=== PATIENT | male | born 1950 | race Caucasian/White ===

== ENCOUNTER 2019-07-10 15:39 | Observation (INO) | payer OTHER ==
[2019-07-10] MEDS ORDERED: FAMOTIDINE 20 MG/2 ML VIAL IV ONE (16:07)
[2019-07-10] MEDS ORDERED: DIGOXIN 0.25 MG/ML AMP ONE (16:07)
[2019-07-10] MEDS ORDERED: NA CHLORIDE 0.9% 1,000 ML ONE (16:07)
[2019-07-10] MEDS ORDERED: ASPIRIN 81 MG CHEWABLE TABLET ONE (16:07)
[2019-07-10] MEDS ORDERED: ENOXAPARIN 100 MG/ML SYR SQ ONE (16:07)
--- NOTE | 2019-07-10 16:35 | RAD REPORT ---
EXAM DESCRIPTION: RAD - Chest Single View - 07/10/2019 4:14 pm CLINICAL HISTORY: Tachycardia, history of atrial fibrillation, cough COMPARISON: None. TECHNIQUE: AP portable chest image was obtained 1606 hours . FINDINGS: Lung volumes are low. No focal lung parenchymal process. Heart and vasculature are normal. No measurable pleural effusion and no pneumothorax. No acute bony abnormality seen. No acute aortic findings suspected. IMPRESSION: No acute cardiopulmonary process.
[2019-07-10 16:39] LABS: Absolute Lymphocytes (CBC) 0.7 K/uL (0.7-4.9); Basophils % 0.9 % (0-1.3); Hematocrit 37.1 % (39.6-49.0); MPV 8.9 fL (7.6-11.3); RBC Red Blood Cell Count 4.23 M/uL (4.33-5.43)
[2019-07-10 16:42] LABS: Protime INR 1.07
--- NOTE | 2019-07-10 16:50 | ER ---
Nurse's Notes [facility] Name: Spencer Prasad Age: 68 yrs Sex: Male : 1950 Arrival Date: 07/10/2019 Time: 15:42 Bed 17 Private MD: Diagnosis: Atrial fibrillation and flutter-with rvr;Palpitations;Unspecified kidney failure-insufficency;Anemia, unspecified Presentation: 07/10 15:45 Presenting complaint: Patient states: i have had afib in the past, he had the ablation tw2 done last year, but the past few days i have been feeling bad, , i feel my heart racing. Transition of care: patient was not received from another setting of care. Onset of symptoms was July 10, 2019. Risk Assessment: Do you want to hurt yourself or someone else? Patient reports no desire to harm self or others. Initial Sepsis Screen: Does the patient meet any 2 criteria? No. Patient's initial sepsis screen is negative. Does the patient have a suspected source of infection? No. Patient's initial sepsis screen is negative. Care prior to arrival: None. 15:45 Method Of Arrival: Ambulatory tw2 15:49 Presenting complaint: Patient states: i am having like allergy problems with a cough tw2 and congestion, tyree dizzy feeling like i am going to pass out. 15:51 Acuity: LOUISE 2 tw2 Triage Assessment: 15:46 General: Appears in no apparent distress. Behavior is calm, cooperative, appropriate tw2 for age. Pain: Denies pain. Cardiovascular: Reports palpitations. Historical: - Allergies: 15:49 No Known Allergies; tw2 - Home Meds: 15:49 Metoprolol Tartrate Oral [Active]; clorcon [Active]; Lisinopril Oral [Active]; aspirin tw2 81 mg Oral chew 1 tab once daily [Active]; Eliquis 5 mg oral tab 1 tab 2 times per day (Last Dose: 06/10/2019) [Active]; - PMHx: 15:49 Atrial Fib; tw2 - PSHx: 15:49 heart ablation; tw2 - Immunization history:: Adult Immunizations. - Social history:: Smoking status: . - Ebola Screening: : Patient denies travel to an Ebola-affected area in the 21 days before illness onset. - Family history:: not pertinent. Screenin:11 Abuse screen: Denies threats or abuse. Nutritional screening: No deficits noted. tw2 Tuberculosis screening: No symptoms or risk factors identified. Fall Risk None identified. Assessment: 16:00 General: Appears comfortable, Behavior is calm, cooperative, appropriate for age. Pain: aj1 Denies pain. Neuro: Level of Consciousness is awake, alert, obeys commands, Oriented to person, place, time, situation, Reports dizziness, when he is standing or active, denies any dizziness at this time. Cardiovascular: Reports palpitations, Denies diaphoresis, lightheadedness, nausea, shortness of breath, syncope, vomiting, Heart tones S1 S2 present Patient's skin is warm and dry. Pulses are all present. are 3+ in right radial artery and left radial artery Rhythm is atrial fibrillation with rapid ventricular response Chest pain is denied. Respiratory: Airway is patent Respiratory effort is even, unlabored, Respiratory pattern is regular, symmetrical, Breath sounds are clear bilaterally. Denies shortness of breath. GI: No signs and/or symptoms were reported involving the gastrointestinal system. : No signs and/or symptoms were reported regarding the genitourinary system. EENT: No signs and/or symptoms were reported regarding the EENT system. Derm: No signs and/or symptoms reported regarding the dermatologic system. Skin is flushed. Musculoskeletal: No signs and/or symptoms reported regarding the musculoskeletal system. Circulation, motion, and sensation intact. 16:32 Reassessment: Dr. Grullon notified of vital signs. aj1 16:40 Reassessment: Dr. Grullon at bedside to evaluate patient. aj1 16:49 Reassessment: HR 115-155, variable. BP 97/70, NAD. Dr. Grullon notified. No new orders hb at this time. 16:50 Reassessment: Dr. Brown at bedside. aj1 17:00 Reassessment: Patient appears in no apparent distress at this time. No changes from aj1 previously documented assessment. Patient and/or family updated on plan of care and expected duration. Pain level reassessed. Patient is alert, oriented x 3, equal unlabored respirations, skin warm/dry/pink. 17:04 Reassessment: BP 80/67. Patient denies dizziness, chest pain, or shortness of breath at aj this time. Dr Grullon aware of vital signs. Patient was instructed to notify staff if he began to have any of the above listed symptoms. 17:10 Reassessment: Dr. Luciano at bedside. aj1 18:00 Reassessment: BP 101/67, will hold 2nd dose of IV Lopressor at this time, and will aj1 continue to monitor and give if indicated. Dr. Grullon aware. 18:00 Reassessment: Patient and/or family updated on plan of care and expected duration. Pain aj1 level reassessed. General: Appears in no apparent distress. comfortable, Behavior is calm, cooperative, appropriate for age. Pain: Denies pain. Neuro: Level of Consciousness is awake, alert, obeys commands, Oriented to person, place, time, situation, Denies dizziness. Cardiovascular: Patient's skin is warm and dry. Rhythm is atrial fibrillation Chest pain is denied. Respiratory: Airway is patent Respiratory effort is even, unlabored, Respiratory pattern is regular, symmetrical. Derm: Skin is pink, warm \T\ dry. normal. Musculoskeletal: Circulation, motion, and sensation intact. 19:00 Reassessment: SBP has maintained between 100- 120, HR is consistently in the 70's for aj1 the past hour. Will give Betapace, hold 2nd dose of IV Lopressor. Dr. Grullon aware Will continue to monitor patient and vital signs. 19:00 Reassessment: Patient appears in no apparent distress at this time. No changes from aj1 previously documented assessment. Patient and/or family updated on plan of care and expected duration. Pain level reassessed. Patient is alert, oriented x 3, equal unlabored respirations, skin warm/dry/pink. 19:32 Reassessment: Patient appears in no apparent distress at this time. Patient and/or wh family updated on plan of care and expected duration. Pain level reassessed. Patient is alert, oriented x 3, equal unlabored respirations, skin warm/dry/pink. Vital Signs: 15:46 BP 85 / 59; Pulse 99; Resp 18; Temp 98(TE); Pulse Ox 97% on R/A; Weight 97.52 kg (R); tw2 Height 6 ft. 0 in. (182.88 cm); Pain 0/10; 16:04 Pulse 122; aj1 16:26 BP 95 / 57; Pulse 157; Resp 16; Pulse Ox 97% on R/A; aj1 17:04 BP 80 / 67; Pulse 153; Resp 20; Pulse Ox 100% on R/A; aj1 17:35 BP 111 / 76; Pulse 131; Resp 18; Pulse Ox 100% on R/A; aj1 17:45 BP 112 / 85; Pulse 103; Resp 13; Pulse Ox 100% on R/A; aj1 17:55 BP 117 / 71; Pulse 78; Resp 18; Pulse Ox 97% on R/A; aj1 18:00 BP 101 / 67; Pulse 78; Resp 14; Pulse Ox 100% ; aj1 18:09 BP 100 / 68; Pulse 78; Resp 13; Pulse Ox 100% on R/A; aj1 18:30 BP 117 / 65; Pulse 75; Resp 16; Pulse Ox 97% on R/A; aj1 18:50 BP 112 / 75; Pulse 78; Resp 20; Pulse Ox 95% on R/A; aj1 19:32 BP 125 / 79; Pulse 77; Resp 14; Pulse Ox 98% on R/A; 15:46 Body Mass Index 29.16 (97.52 kg, 182.88 cm) tw2 ED Course: 15:42 Patient arrived in ED. mr 15:46 Triage completed. tw2 15:46 Arm band placed on. tw2 15:50 Tl Grullon MD is Attending Physician. rhonda 15:50 Bed in low position. Call light in reach. Adult w/ patient. surveillance system monitor on. Pulse tw2 ox on. NIBP on. 15:53 EKG completed in triage. Results shown to MD. tw2 16:03 Milagros Jackson, KENYON is Primary Nurse. aj1 16:12 EKG done, by pc tech. reviewed by Tl Grullon MD. 3 16:14 XRAY Chest (1 view) In Process Unspecified. EDMS 16:49 Samantha Manzano MD is Hospitalizing Provider. rhonda 16:54 Jonathan Luciano DO is Hospitalizing Provider. rhonda 20:05 Report given to KENYON Yoder on 4th floor. aj1 20:15 No provider procedures requiring assistance completed. Patient admitted, IV remains in aj1 place. Administered Medications: 16:00 Drug: Digoxin 0.5 mg Route: IVP; Site: right antecubital; aj1 17:00 Follow up: Response: No adverse reaction aj1 16:27 Drug: NS 0.9% 1000 ml Route: IV; Rate: 1 bolus; Site: right antecubital; aj1 17:00 Follow up: IV Status: Completed infusion; IV Intake: 1000ml aj 16:27 Drug: Aspirin 81 mg Route: PO; aj1 17:00 Follow up: Response: No adverse reaction aj1 16:27 Drug: Lovenox 1 mg/kg Route: Sub-Q; Site: right lower abdomen; aj1 17:00 Follow up: Response: No adverse reaction aj1 16:27 Drug: Pepcid 20 mg Route: IVP; Site: right antecubital; aj1 17:00 Follow up: Response: No adverse reaction aj1 17:03 Drug: NS 0.9% 500 ml Route: IV; Rate: bolus; Site: right antecubital; aj1 17:30 Follow up: IV Status: Completed infusion; IV Intake: 500ml aj1 17:35 Drug: Lopressor 2.5 mg {Note: BP 111/76 HR 131 RR 18 O2 sat 100%.} Route: IVP; Site: aj left antecubital; 18:00 Follow up: Response: No adverse reaction aj1 17:35 Drug: Magnesium Sulfate 1 grams Route: IVPB; Infused Over: 1 hrs; Site: right aj1 antecubital; 18:45 Follow up: IV Status: Completed infusion; IV Intake: 100ml aj1 18:02 CANCELLED (Duplicate Order): Lopressor 25 mg PO once rhonda 18:50 Drug: Betapace 80 mg Route: PO; aj1 20:15 Follow up: Response: No adverse reaction aj1 21:14 Not Given (Hemodynamic Parameters): Lopressor 2.5 mg IVP once; Hold for SBP <100 or HR aj1 <60. Intake: 17:00 IV: 1000ml; Total: 1000ml. aj1 17:30 IV: 500ml; Total: 1500ml. aj1 18:45 IV: 100ml; Total: 1600ml. aj1 Outcome: 16:49 Decision to Hospitalize by Provider. rhonda 20:15 Admitted to Tele accompanied by tech, via wheelchair, with chart. aj1 20:15 Condition: stable 20:15 Discharge instructions given to patient, Instructed on the need for admit, Demonstrated understanding of instructions. 20:16 Patient left the ED. wh Signatures: Dispatcher [employer] EDMS Milagros Jackson RN RN aj1 Tl Grullon MD MD cha Rivera, Soni mr Vaishnavi Hanson RN RN America Iniguez RN RN tw2 Jose Alfredo Aceves Shakira 3 Corrections: (The following items were deleted from the chart) 15:51 15:45 Acuity: LOUISE 3 tw2 tw2 20:05 20:04 Report given to KENYON Yoder on 2nd floor aj1 aj1
--- NOTE | 2019-07-10 16:50 | EDPHYS ---
Physician Documentation [facility] Name: Spencer Prasad Age: 68 yrs Sex: Male : 1950 Arrival Date: 07/10/2019 Time: 15:42 Bed 17 Private MD: ED Physician Tl Grullon HPI: 07/10 16:43 This 68 yrs old Male presents to ER via Ambulatory with complaints of AFIB. rhonda 16:43 The patient has shortness of breath at rest, with light activity. Onset: The rhonda symptoms/episode began/occurred 1 day(s) ago. Duration: The symptoms are continuous, and are unchanged since they started. The patient's shortness of breath has no apparent modifying factors, is aggravated by nothing, is alleviated by nothing. The patient presents with a history of irregular heart beat, heart racing. Context: The symptoms occur at rest. Associated signs and symptoms: The patient has no apparent associated signs or symptoms. Historical: - Allergies: 15:49 No Known Allergies; tw2 - Home Meds: 15:49 Metoprolol Tartrate Oral [Active]; clorcon [Active]; Lisinopril Oral [Active]; aspirin tw2 81 mg Oral chew 1 tab once daily [Active]; Eliquis 5 mg oral tab 1 tab 2 times per day (Last Dose: 06/10/2019) [Active]; - PMHx: 15:49 Atrial Fib; tw2 - PSHx: 15:49 heart ablation; tw2 - Immunization history:: Adult Immunizations. - Social history:: Smoking status: . - Ebola Screening: : Patient denies travel to an Ebola-affected area in the 21 days before illness onset. - Family history:: not pertinent. ROS: 16:43 Constitutional: Negative for fever, chills, and weight loss, Eyes: Negative for injury, rhonda pain, redness, and discharge, ENT: Negative for injury, pain, and discharge, Neck: Negative for injury, pain, and swelling, Respiratory: Negative for shortness of breath, cough, wheezing, and pleuritic chest pain, Abdomen/GI: Negative for abdominal pain, nausea, vomiting, diarrhea, and constipation, Back: Negative for injury and pain, : Negative for injury, bleeding, discharge, and swelling, MS/Extremity: Negative for injury and deformity, Skin: Negative for injury, rash, and discoloration, Neuro: Negative for headache, weakness, numbness, tingling, and seizure, Psych: Negative for depression, anxiety, suicide ideation, homicidal ideation, and hallucinations, Allergy/Immunology: Negative for hives, rash, and allergies, Endocrine: Negative for neck swelling, polydipsia, polyuria, polyphagia, and marked weight changes, Hematologic/Lymphatic: Negative for swollen nodes, abnormal bleeding, and unusual bruising. 16:43 Cardiovascular: Positive for chest pain, palpitations. Exam: 16:43 Constitutional: This is a well developed, well nourished patient who is awake, alert, rhonda and in no acute distress. Head/Face: Normocephalic, atraumatic. Eyes: Pupils equal round and reactive to light, extra-ocular motions intact. Lids and lashes normal. Conjunctiva and sclera are non-icteric and not injected. Cornea within normal limits. Periorbital areas with no swelling, redness, or edema. ENT: Nares patent. No nasal discharge, no septal abnormalities noted. Tympanic membranes are normal and external auditory canals are clear. Oropharynx with no redness, swelling, or masses, exudates, or evidence of obstruction, uvula midline. Mucous membranes moist. Neck: Trachea midline, no thyromegaly or masses palpated, and no cervical lymphadenopathy. Supple, full range of motion without nuchal rigidity, or vertebral point tenderness. No Meningismus. Chest/axilla: Normal chest wall appearance and motion. Nontender with no deformity. No lesions are appreciated. Respiratory: Lungs have equal breath sounds bilaterally, clear to auscultation and percussion. No rales, rhonchi or wheezes noted. No increased work of breathing, no retractions or nasal flaring. Abdomen/GI: Soft, non-tender, with normal bowel sounds. No distension or tympany. No guarding or rebound. No evidence of tenderness throughout. Back: No spinal tenderness. No costovertebral tenderness. Full range of motion. Male : Normal genitalia with no discharge or lesions. Skin: Warm, dry with normal turgor. Normal color with no rashes, no lesions, and no evidence of cellulitis. MS/ Extremity: Pulses equal, no cyanosis. Neurovascular intact. Full, normal range of motion. Neuro: Awake and alert, GCS 15, oriented to person, place, time, and situation. Cranial nerves II-XII grossly intact. Motor strength 5/5 in all extremities. Sensory grossly intact. Cerebellar exam normal. Normal gait. Psych: Awake, alert, with orientation to person, place and time. Behavior, mood, and affect are within normal limits. 16:43 Cardiovascular: Rate: tachycardic, Rhythm: irregular, irregularly irregular, Pulses: Pulses are 4+ in bilateral radial, brachial, femoral, popliteal, posterior tibial and and dorsalis pedis arteries.. Heart sounds: normal, Edema: is not appreciated, JVD: is not appreciated. Vital Signs: 15:46 BP 85 / 59; Pulse 99; Resp 18; Temp 98(TE); Pulse Ox 97% on R/A; Weight 97.52 kg (R); tw2 Height 6 ft. 0 in. (182.88 cm); Pain 0/10; 16:04 Pulse 122; aj1 16:26 BP 95 / 57; Pulse 157; Resp 16; Pulse Ox 97% on R/A; aj1 17:04 BP 80 / 67; Pulse 153; Resp 20; Pulse Ox 100% on R/A; aj1 17:35 BP 111 / 76; Pulse 131; Resp 18; Pulse Ox 100% on R/A; aj1 17:45 BP 112 / 85; Pulse 103; Resp 13; Pulse Ox 100% on R/A; aj1 17:55 BP 117 / 71; Pulse 78; Resp 18; Pulse Ox 97% on R/A; aj1 18:00 BP 101 / 67; Pulse 78; Resp 14; Pulse Ox 100% ; aj1 18:09 BP 100 / 68; Pulse 78; Resp 13; Pulse Ox 100% on R/A; aj1 18:30 BP 117 / 65; Pulse 75; Resp 16; Pulse Ox 97% on R/A; aj1 18:50 BP 112 / 75; Pulse 78; Resp 20; Pulse Ox 95% on R/A; aj1 19:32 BP 125 / 79; Pulse 77; Resp 14; Pulse Ox 98% on R/A; wh 15:46 Body Mass Index 29.16 (97.52 kg, 182.88 cm) tw2 MDM: 15:50 Patient medically screened. [facility] 16:43 Data reviewed: vital signs, nurses notes, lab test result(s), EKG, radiologic studies, [facility] plain films. 07/10 15:54 Order name: Basic Metabolic Panel; Complete Time: 17:12 [facility] 07/10 15:54 Order name: CBC with Diff; Complete Time: 16:40 [facility] 07/10 15:54 Order name: LFT's; Complete Time: 17:12 [facility] 07/10 15:54 Order name: Magnesium; Complete Time: 17:12 [facility] 07/10 15:54 Order name: NT PRO-BNP; Complete Time: 17:12 [facility] 07/10 15:54 Order name: PT-INR; Complete Time: 17:12 [facility] 07/10 15:54 Order name: Troponin (emerg Dept Use Only); Complete Time: 17:12 [facility] 07/10 15:54 Order name: XRAY Chest (1 view); Complete Time: 16:55 [facility] 07/10 15:54 Order name: TSH; Complete Time: 17:12 [facility] 07/10 15:54 Order name: EKG; Complete Time: 15:55 [facility] 07/10 15:54 Order name: Cardiac monitoring; Complete Time: 16:11 [facility] 07/10 15:54 Order name: EKG - Nurse/Tech; Complete Time: 16:11 [facility] 07/10 15:54 Order name: IV Saline Lock; Complete Time: 16:28 [facility] 07/10 15:54 Order name: Labs collected and sent; Complete Time: 16:28 [facility] 07/10 15:54 Order name: O2 Per Protocol; Complete Time: 16:11 [facility] 07/10 15:54 Order name: O2 Sat Monitoring; Complete Time: 16:11 [facility] Administered Medications: 16:00 Drug: Digoxin 0.5 mg Route: IVP; Site: right antecubital; aj1 17:00 Follow up: Response: No adverse reaction aj 16:27 Drug: NS 0.9% 1000 ml Route: IV; Rate: 1 bolus; Site: right antecubital; aj1 17:00 Follow up: IV Status: Completed infusion; IV Intake: 1000ml 16:27 Drug: Aspirin 81 mg Route: PO; aj1 17:00 Follow up: Response: No adverse reaction aj 16:27 Drug: Lovenox 1 mg/kg Route: Sub-Q; Site: right lower abdomen; aj1 17:00 Follow up: Response: No adverse reaction 16:27 Drug: Pepcid 20 mg Route: IVP; Site: right antecubital; aj1 17:00 Follow up: Response: No adverse reaction aj1 17:03 Drug: NS 0.9% 500 ml Route: IV; Rate: bolus; Site: right antecubital; aj1 17:30 Follow up: IV Status: Completed infusion; IV Intake: 500ml aj1 17:35 Drug: Lopressor 2.5 mg {Note: BP 111/76 HR 131 RR 18 O2 sat 100%.} Route: IVP; Site: aj left antecubital; 18:00 Follow up: Response: No adverse reaction aj1 17:35 Drug: Magnesium Sulfate 1 grams Route: IVPB; Infused Over: 1 hrs; Site: right aj1 antecubital; 18:45 Follow up: IV Status: Completed infusion; IV Intake: 100ml aj1 18:02 CANCELLED (Duplicate Order): Lopressor 25 mg PO once rhonda 18:50 Drug: Betapace 80 mg Route: PO; aj1 20:15 Follow up: Response: No adverse reaction aj1 21:14 Not Given (Hemodynamic Parameters): Lopressor 2.5 mg IVP once; Hold for SBP <100 or HR aj1 <60. Disposition: 16:43 Critical Care:. rhonda Disposition: 07/10/19 16:49 Hospitalization ordered by Jonathan Luciano for Inpatient Admission. Preliminary diagnosis are Atrial fibrillation and flutter - with rvr, Palpitations, Unspecified kidney failure - insufficency, Anemia, unspecified. - Bed requested for Telemetry/MedSurg (Inpatient). - Status is Inpatient Admission. - Condition is Stable. - Problem is new. - Symptoms have improved. UTI on Admission? No Critical care time excluding procedures: 16:43 Critical care time: Bedside Care: 10 minutes, Consultation: 10 minutes, Family rhonda Intervention: 5 minutes. Total time: 25 minutes Signatures: Dispatcher [employer] Ruth Collado Angela, RN RN aj1 Tl Grullon MD MD cha Wise, Tara, RN RN 2 Jose Alfredo Aceves Corrections: (The following items were deleted from the chart) 16:54 16:49 Hospitalization Ordered by Samantha Manzano MD for Inpatient Admission. Preliminary rhonda diagnosis is Atrial fibrillation and flutter - with rvr; Palpitations. Bed requested for Telemetry/MedSurg (Inpatient). Status is Inpatient Admission. Condition is Stable. Problem is new. Symptoms have improved. UTI on Admission? No. rhonda 17:21 16:54 07/10/2019 16:49 Hospitalization Ordered by Jonathan Luciano DO for Inpatient rhonda Admission. Preliminary diagnosis is Atrial fibrillation and flutter - with rvr; Palpitations. Bed requested for Telemetry/MedSurg (Inpatient). Status is Inpatient Admission. Condition is Stable. Problem is new. Symptoms have improved. UTI on Admission? No. rhonda 18:02 17:53 Lopressor 25 mg PO once ordered. rhonda rhonda 18:50 17:21 07/10/2019 16:49 Hospitalization Ordered by Jonathan Luciano DO for Inpatient bd Admission. Preliminary diagnosis is Atrial fibrillation and flutter - with rvr; Palpitations; Unspecified kidney failure - insufficency. Bed requested for Telemetry/MedSurg (Inpatient). Status is Inpatient Admission. Condition is Stable. Problem is new. Symptoms have improved. UTI on Admission? No. rhonda 19:55 18:50 07/10/2019 16:49 Hospitalization Ordered by Jonathan Luciano DO for Inpatient rhonda Admission. Preliminary diagnosis is Atrial fibrillation and flutter - with rvr; Palpitations; Unspecified kidney failure - insufficency. Bed requested for Telemetry/MedSurg (Inpatient). Status is Inpatient Admission. Condition is Stable. Problem is new. Symptoms have improved. UTI on Admission? No. bd 20:16 19:55 07/10/2019 16:49 Hospitalization Ordered by Jonathan Luciano DO for Inpatient wh Admission. Preliminary diagnosis is Atrial fibrillation and flutter - with rvr; Palpitations; Unspecified kidney failure - insufficency; Anemia, unspecified. Bed requested for Telemetry/MedSurg (Inpatient). Status is Inpatient Admission. Condition is Stable. Problem is new. Symptoms have improved. UTI on Admission? No. rhonda
[2019-07-10] MEDS ORDERED: NA CHLORIDE 0.9% 500 ML ONE (17:00)
[2019-07-10 17:02] LABS: Bilirubin Direct 0.2 mg/dL (0-0.2); Bilirubin Total 0.7 mg/dL (0.2-1.0); Magnesium 2.1 mg/dL (1.8-2.4); Potassium 4.3 mmol/L (3.5-5.1); Protein, Total 6.4 g/dL (6.4-8.2); Thyroid Stimulating Hormone 2.45 uIU/mL (0.360-3.740); Troponin (Emerg Dept Use Only) 0.05 ng/mL (0.0-0.045)
[2019-07-10] MEDS ORDERED: METOPROLOL TARTRATE 5 MG/5 ML INJ IV ONE (17:22)
[2019-07-10] MEDS ORDERED: MAGNESIUM SULFATE 1 gm IVPB 1 GM/100 ML BAG IV ONE (17:22)
--- NOTE | 2019-07-10 18:07 | P.HP ---
Certification for Inpatient Patient admitted to: Inpatient With expected LOS: >2 Midnights Patient will require the following post-hospital care: None Practitioner: I am a practitioner with admitting privileges, knowledge of patient current condition, hospital course, and medical plan of care. Services: Services provided to patient in accordance with Admission requirements found in Title 42 Section 412.3 of the Code of Federal Regulations Patient History Date of Service: 07/10/19 Primary Care Provider: out of town Reason for admission: Palpitations History of Present Illness: 68-year-old male presented to the emergency room with palpitations and shortness of breath. Patient with history of atrial fibrillation on chronic anti coagulation therapy, rheumatoid arthritis and CHF. Patient presented to the emergency room with shortness of breath. In the ER patient found to have atrial fibrillation with RVR. Rate was in the 140s to 150s. Patient was given medication-Lopressor with improvement of symptoms. Rate now better controlled. Blood pressure stable. Patient did receive a bolus of fluid due to low blood pressure. Patient denied any chest pain, fever, chills. Patient now stabilized medically. Lab shows hemoglobin 12.6, white count 8.2, sodium 140, potassium 4.3. BUN of 19, creatinine 1.59 with a GFR 43. Glucose 116. Troponin 0.05. Patient admitted for further evaluation. Patient has been started on Betapace. Anti coagulation to be initiated as well. When I saw the patient ER, rate was still elevated this was prior to patient getting Lopressor. Patient was stable at that time. Patient is from out of town. He recently moved to the area. He has been taking medication metoprolol. He was previously on anti coagulation therapy-Xarelto. He had to stop medication due to Xarelto costing too much. Patient with history of cardiac ablation in August near the [facility]. Home medications list reviewed: Yes - Past Medical/Surgical History -: Chronic atrial fibrillation on anti coagulation therapy -: Rheumatoid arthritis on chronic steroids -: CHF -: Hypertension Past Surgical History: Patient denies surgical history Psychosocial/ Personal History: Patient is - Family History Family History: Reviewed- Non-Contributory - Social History Smoking Status: Never smoker Alcohol use: No CD- Drugs: No Caffeine use: No Place of Residence: Home Review of Systems General: As per HPI Eyes: Unremarkable ENT: Unremarkable Respiratory: Shortness of Breath, SOB with Excertion, As per HPI Cardiovascular: Palpitations, As per HPI Gastrointestinal: Unremarkable Genitourinary: Unremarkable Musculoskeletal: Unremarkable Integumentary: Unremarkable Neurological: Unremarkable Lymphatics: Unremarkable Physical Examination - Physical Exam General: Alert, In no apparent distress, Oriented x3, Cooperative HEENT: Atraumatic Neck: Supple, No Thyromegaly Respiratory: Clear to auscultation bilaterally, Normal air movement Cardiovascular: Irregular heart rate/rhythm (Atrial fibrillation rate around 120 ) Gastrointestinal: Normal bowel sounds, Soft and benign, Non-distended, No tenderness, No masses, No rebound, No guarding Musculoskeletal: No erythema, No tenderness, No warmth Integumentary: No tenderness/swelling, No erythema, No warmth, No cyanosis Neurological: Normal speech, Normal strength at 5/5 x4 extr, Normal tone, Normal affect - Studies Laboratory Data (last 24 hrs) 07/10/19 16:10: PT 12.6 H, INR 1.07 07/10/19 16:10: WBC 8.2, Hgb 12.6 L, Hct 37.1 L, Plt Count 258 07/10/19 16:10: Sodium 140, Potassium 4.3, BUN 19 H, Creatinine 1.59 H, Glucose 116 H, Magnesium 2.1, Total Bilirubin 0.7, AST 14 L, ALT 16, Alkaline Phosphatase 81 Assessment and Plan - Plan Impression: Atrial fibrillation with RVR Hypertension Rheumatoid arthritis on chronic steroids Chronic anti coagulation therapy for atrial fibrillation Plan: Atrial fibrillation with RVR: Patient was given IV medication in the emergency room. Rate now better controlled. Case discussed with cardiology who has been consulted. Patient will be started on Betapace. Will start Lovenox for anti coagulation therapy. Will need to determine what is going to be more affordable for the patient at discharge for anti coagulation therapy either Eliquis or Xarelto. Will continue to reassess. Will monitor on telemetry. Continue to monitor cardiac enzymes. Will obtain home medication. Patient previously with cardiac ablation. Await further recommendations from cardiology. Will obtain echocardiogram. Patient may need to stay at least 48 hr while monitoring on Betapace. Hypertension: Will need to obtain home medication. May need to start medication. Rheumatoid arthritis on chronic steroids: Will continue with prednisone 5 mg daily. Chronic anti coagulation therapy for atrial fibrillation: Patient currently on Lovenox. Will need to determine if the patient will be able to take Eliquis or Xarelto pending insurance approval. Discharge Plan: Home Plan to discharge in: Greater than 2 days - Advance Directives Does patient have a Living Will: No Does patient have a Durable POA for Healthcare: No - Code Status/Comfort Care Code Status Assessed: Yes (Patient is full code) Time Spent Managing Pts Care (In Minutes): 55
[2019-07-10] MEDS ORDERED: SOTALOL HCL 80 MG TAB ONE (18:50)
--- NOTE | 2019-07-10 20:41 | CON ---
Date of Consultation: 07/10/2019 Patient admitted on 07/10/[address] Luciano. I saw the patient on 07/10/2019. Reason For Consultation: Atrial fibrillation. History Of Present Illness: Mr. Prasad is a 68-year-old white male, who has had a history of atrial fibrillation before. He is status post atrial fibrillation ablation in August of 2018. Apparentmelanie y has been taken metoprolol and Xarelto, but he quit his Xarelto recently because of cost. He also h as a history of hypertension. Came in with rapid atrial fibrillation, rate between 140 and 160 with slight hypotension, but no chest pain. No nausea, vomiting, diaphoresis, PND, orthopnea, pedal edema , or syncope. Denied any fever or chills. Past Medical History: Atrial fibrillation status post ablation and hypertension. Allergies: NONE. Review of Systems: Negative. Social History: Negative. Family History: Noncontributory. Medications: Metoprolol, lisinopril, potassium, aspirin. He was supposed to be taken Eliquis 5 mg 1 p.o. b.i.d., but he has stopped that. Physical Examination: Vital Signs: Noted to have slight hypotension. Blood pressure was 90/60. His heart rate was 150-16 0. General: He was in no acute distress. However, he was not diaphoretic. Afebrile. HEENT: Negative. Neck: Supple without any bruit, lymphadenopathy, JVD, or thyromegaly. Chest: Clear to auscultation and percussion. Cardiac: Atrial fibrillation. No murmurs, gallops, or rubs. Abdomen: Benign. Extremities: No clubbing, cyanosis, or edema. Skin: Dry and intact. Neurologic: He was nonfocal. Pulses were present bilaterally and symmetrically in the dorsalis pedi s and posterior tibial. Diagnostic Data: His creatinine was 1.59. His INR was normal at 1.07. His glucose was 116. His tr oponin was 0.05. BNP was 2621. His chest x-ray was negative. Impression And Plan: Atrial fibrillation, recurrent, status post ablation approximately a year ago. Patient has quit his Eliquis secondary to cost. He is on metoprolol. He has received a dose of dig oxin. He has received a low dose of beta-eder IV. Has received hydration. He is now normotensiv e asymptomatic, remains in atrial fibrillation rate of 110-120. I think we need to put him on Betapa ce 80 mg 1 p.o. b.i.d. Get a 2D echocardiogram on him tomorrow. His thyroid is normal. We will see how he responds to the Betapace. If he continues to be in atrial fibrillation, we will shock him wi th cardioversion. He may need to be on amiodarone or even have another ablation in the near future. Also, recommend an outpatient stress test on him eventually. His blood pressure is well controlled. WILFRIDO/ELLIE Voice ID: [id number] Report ID: [id number]
[2019-07-10] MEDS ORDERED: ENOXAPARIN 100 MG/ML SYR SQ SCH (21:28)
[2019-07-10] MEDS: SOTALOL HCL 80 MG TAB PO SCH (21:28)
[2019-07-10] MEDS ORDERED: NA CHLORIDE 0.9% 1,000 ML IV SCH (21:28)
[2019-07-10 22:36] LABS: CKMB Creatine Kinase MB 1.7 ng/mL (0.3-3.6); Troponin I 0.05 ng/mL (0.0-0.045)
[2019-07-11 00:07] VITALS: BMI 28.5
[2019-07-11] MEDS ORDERED: DIPHENHYDRAMINE 25 MG TAB/CAP PO ONE (01:15)
[2019-07-11] MEDS ORDERED: ENOXAPARIN 100 MG/ML SYR SQ SCH (05:00)
[2019-07-11 05:03] LABS: Absolute Lymphocytes (CBC) 0.9 K/uL (0.7-4.9); Basophils % 0.8 % (0-1.3); Lymphocytes % 11.9 % (15.3-44.8); MPV 9.4 fL (7.6-11.3); RBC Red Blood Cell Count 3.96 M/uL (4.33-5.43)
[2019-07-11 05:30] LABS: Magnesium 2.2 mg/dL (1.8-2.4); Potassium 3.9 mmol/L (3.5-5.1); Thyroid Stimulating Hormone 3.23 uIU/mL (0.360-3.740)
[2019-07-11] MEDS: SOTALOL HCL 80 MG TAB PO SCH (06:00)
[2019-07-11] MEDS ORDERED: PANTOPRAZOLE 40MG TABLET PO SCH (06:30)
--- NOTE | 2019-07-11 06:54 | EKG ---
Test Date: 2019-07-10 Test Time: 15:51:11 [employer] Inspector: SP MEASUREMENT RESULTS: Intervals: Rate: 118 [place]: QRSD: 138 QT: 362 QTc: 507 [place]: P: [place]: QRS: -33 T: 106 INTERPRETIVE STATEMENTS: Atrial fibrillation with rapid ventricular response with premature ventricular complexes Left axis deviation Right bundle branch block Left ventricular hypertrophy with repolarization abnormality Abnormal ECG No previous ECG available for comparison Electronically Signed On 07-11-19 06:53:51 CDT by Chsa De Jesus
[2019-07-11 07:57] LABS: Urine Appearance CLEAR; Urine Bilirubin NEGATIVE (NEG); Urine Blood NEGATIVE (NEG); Urine Color YELLOW; Urine Glucose NEGATIVE (NEG); Urine Protein NEGATIVE (NEG)
[2019-07-11 08:00] LABS: Urine Microscopic Reflex NO UMIC
--- NOTE | 2019-07-11 08:12 | P.PN ---
Date of Service: 07/10/19 I was called to examine patient patient because he was complaining of a rash. On examination noted erythematous rash in bilateral thighs and scattered erythematous rash on the abominal wall. Face was also red. Suspect Allergy to medication. Culprit medication is unknown. Last medication given before the rash was Betapace. Will hold morning dose Betapace Benadryl PO ordered. Cardiology to follow in am for possible alternative medication.
[2019-07-11] MEDS ORDERED: FUROSEMIDE 20 MG TABLET PO SCH (09:00)
[2019-07-11] MEDS ORDERED: predniSONE 5 MG TAB PO SCH (09:00)
[2019-07-11 09:01] VITALS: O2SAT 94
--- NOTE | 2019-07-11 12:12 | P.DS ---
Admission Date: 07/10/19 Discharge Date: 07/11/19 Primary Care Provider: out of town Disposition: ROUTINE DISCHARGE Discharge Condition: GOOD Reason for Admission: Palpitations Consultations: Cardiology-Dr. Mabry Procedures: Medical problem list: Atrial fibrillation with RVR Hypertension Rheumatoid arthritis on chronic steroids Chronic anti coagulation therapy for atrial fibrillation GERD Hyperlipidemia Brief History of Present Illness: 68-year-old male presented to the emergency room with palpitations and shortness of breath. Patient with history of atrial fibrillation on chronic anti coagulation therapy, rheumatoid arthritis and CHF. Patient presented to the emergency room with shortness of breath. In the ER patient found to have atrial fibrillation with RVR. Rate was in the 140s to 150s. Patient was given medication-Lopressor with improvement of symptoms. Rate now better controlled. Blood pressure stable. Patient did receive a bolus of fluid due to low blood pressure. Patient denied any chest pain, fever, chills. Patient now stabilized medically. Lab shows hemoglobin 12.6, white count 8.2, sodium 140, potassium 4.3. BUN of 19, creatinine 1.59 with a GFR 43. Glucose 116. Troponin 0.05. Patient admitted for further evaluation. Patient has been started on Betapace. Anti coagulation to be initiated as well. When I saw the patient ER, rate was still elevated this was prior to patient getting Lopressor. Patient was stable at that time. Patient is from out of town. He recently moved to the area. He has been taking medication metoprolol. He was previously on anti coagulation therapy-Xarelto. He had to stop medication due to Xarelto costing too much. Patient [facility] Course: Patient presented with shortness of breath and chest pain. Patient found to have atrial fibrillation with RVR. Patient with history of atrial fibrillation on chronic anti coagulation therapy. He had been with out his medication- Xarelto. He also reports a history of cardiac ablation. Patient was treated in the emergency room with Lopressor. Patient was seen and evaluated by Cardiology. Patient was started on Betapace but patient had allergic rash likely related to this. Betapace was discontinued. Case discussed at length with cardiology. Patient switched back to metoprolol but at a higher dose. Patient has remained stable. Patient in atrial fibrillation with rate controlled. At discharge patient will continue with Toprol-XL 100 mg 1 pill twice daily. Patient will continue with chronic anti coagulation therapy but will switch from Xarelto to Eliquis due to cost savings. At discharge he will continue with Eliquis 5 mg 1 pill twice daily. Other medications include Lasix 20 mg daily with potassium supplementation and magnesium supplementation. Recommendation is for the patient to follow up with cardiology in 1-2 weeks to monitor his progress and further address. Patient with hypertension. Medications have been adjusted due to his atrial fibrillation. Metoprolol XL has been increased to 100 mg 1 pill twice daily. Losartan 25 mg has been discontinued as blood pressure is stable with current metoprolol. Losartan may need to be added in the future if blood pressure remains elevated. Recommendation to monitor his blood pressure daily. Further adjustment in medication can be done by cardiology. Patient with rheumatoid arthritis on chronic steroids. This has remains stable. Patient will continue with his current medications of prednisone 5 mg daily, gabapentin 300 mg daily and Leflunomide 20 mg daily. Patient will need to follow up with Rheumatology to further monitor. Patient likely with GERD. Patient started on Protonix. At discharge, patient will continue with Protonix 40 mg 1 pill once daily. Patient with hyperlipidemia. Patient will continue with his medication Lipitor 20 mg daily. Vital Signs/Physical Exam: Temp Pulse Resp BP Pulse Ox 97.5 F 86 18 127/75 98 07/11/19 08:00 07/11/19 08:00 07/11/19 08:00 07/11/19 08:00 07/11/19 08:00 General: Alert, In no apparent distress, Oriented x3, Cooperative HEENT: Atraumatic Neck: Supple Respiratory: Clear to auscultation bilaterally, Normal air movement Cardiovascular: Normal pulses, Irregular heart rate/rhythm (Atrial fibrillation , rate controlled) Gastrointestinal: Normal bowel sounds, Soft and benign, Non-distended, No tenderness, No masses, No rebound, No guarding Musculoskeletal: No erythema, No tenderness, No warmth Integumentary: No tenderness/swelling, No erythema, No warmth, No cyanosis Neurological: Normal speech, Normal strength at 5/5 x4 extr, Normal affect Laboratory Data at Discharge: WBC 7.2 K/uL (4.3-10.9) 07/11/19 04:10 Hgb 12.0 g/dL (13.6-17.9) L 07/11/19 04:10 Hct 35.0 % (39.6-49.0) L 07/11/19 04:10 Plt Count 200 K/uL (152-406) D 07/11/19 04:10 PT 12.6 SECONDS (9.5-12.5) H 07/10/19 16:10 INR 1.07 07/10/19 16:10 Sodium 141 mmol/L (136-145) 07/11/19 04:10 Potassium 3.9 mmol/L (3.5-5.1) 07/11/19 04:10 BUN 19 mg/dL (7-18) H 07/11/19 04:10 Creatinine 1.21 mg/dL (0.55-1.3) 07/11/19 04:10 Glucose 74 mg/dL (74-106) 07/11/19 04:10 Magnesium 2.2 mg/dL (1.8-2.4) 07/11/19 04:10 Total Bilirubin 0.7 mg/dL (0.2-1.0) 07/10/19 16:10 AST 14 U/L (15-37) L 07/10/19 16:10 ALT 16 U/L (12-78) 07/10/19 16:10 Alkaline Phosphatase 81 U/L (45-117) 07/10/19 16:10 Troponin I 0.05 ng/mL (0.0-0.045) H 07/10/19 21:45 Triglycerides 164 mg/dL (<150) H 07/11/19 04:10 Cholesterol 116 mg/dL (<200) 07/11/19 04:10 HDL Cholesterol 35 mg/dL (40-60) L 07/11/19 04:10 Cholesterol/HDL Ratio 3.31 07/11/19 04:10 Home Medications: Apixaban [Eliquis] 5 mg PO BID #60 tablet 07/11/19 Atorvastatin Calcium [Lipitor*] 20 mg PO DAILY 07/11/19 Folic Acid 1 mg PO DAILY 07/11/19 Furosemide [Lasix*] 20 mg PO DAILY 07/11/19 Gabapentin 300 mg PO DAILY 07/11/19 Leflunomide 20 mg PO DAILY 07/11/19 Magnesium Oxide [Magnesium] 250 mg PO DAILY 07/11/19 Metoprolol Succinate [Toprol Xl] 100 mg PO BID #60 tab.er.24h 07/11/19 Pantoprazole [Protonix Tab*] 40 mg PO DAILYAC #30 tab 07/11/19 Potassium Oral Tab [Klor-Con 10 mEq Tab*] 10 meq PO DAILY 07/11/19 predniSONE [Prednisone*] 5 mg PO DAILY 07/11/19 New Medications: Apixaban [Eliquis] 5 mg PO BID #60 tablet Metoprolol Succinate [Toprol Xl] 100 mg PO BID #60 tab.er.24h Pantoprazole [Protonix Tab*] 40 mg PO DAILYAC #30 tab Patient Discharge Instructions: 1. Recommend follow up with his PCP in 1 week to follow up this hospitalization. Patient will need to establish care. A list of providers will be provided. 2. Patient presented with shortness of breath and chest pain. Patient found to have atrial fibrillation with RVR. Patient with history of atrial fibrillation on chronic anti coagulation therapy. He had been with out his medication-Xarelto. He also reports a history of cardiac ablation. Patient was treated in the emergency room with Lopressor. Patient was seen and evaluated by Cardiology. Patient was started on Betapace but patient had allergic rash likely related to this. Betapace was discontinued. Case discussed at length with cardiology. Patient switched back to metoprolol but at a higher dose. Patient has remained stable. Patient in atrial fibrillation with rate controlled. At discharge patient will continue with Toprol-XL 100 mg 1 pill twice daily. Patient will continue with chronic anti coagulation therapy but will switch from Xarelto to Eliquis due to cost savings. At discharge he will continue with Eliquis 5 mg 1 pill twice daily. Other medications include Lasix 20 mg daily with potassium supplementation and magnesium supplementation. Recommendation is for the patient to follow up with cardiology in 1-2 weeks to monitor his progress and further address. 3. Patient with hypertension. Medications have been adjusted due to his atrial fibrillation. Metoprolol XL has been increased to 100 mg 1 pill twice daily. Losartan 25 mg has been discontinued as blood pressure is stable with current metoprolol. Losartan may need to be added in the future if blood pressure remains elevated. Recommendation to monitor his blood pressure daily. Further adjustment in medication can be done by cardiology. 4. Patient with rheumatoid arthritis on chronic steroids. This has remains stable. Patient will continue with his current medications of prednisone 5 mg daily, gabapentin 300 mg daily and Leflunomide 20 mg daily. Patient will need to follow up with Rheumatology to further monitor. 5. Patient likely with GERD. Patient started on Protonix. At discharge, patient will continue with Protonix 40 mg 1 pill once daily. 6. Patient with hyperlipidemia. Patient will continue with his medication Lipitor 20 mg daily. Diet: AHA Activity: Fall precautions Time spent managing pt's care (in minutes): 55
--- NOTE | 2019-07-11 15:21 | ECHO ---
HEIGHT: 6 ft 0 in WEIGHT: 210 lb 11.2 oz DATE OF STUDY: 07/11/[address]: Jonathan Luciano DO 2-DIMENSIONAL: YES M.MODE: YES DOPPLER: YES COLOR FLOW: YES TDS: NO PORTABLE: NO DEFINITY: NO BUBBLE STUDY: NO DIAGNOSIS: ATRIAL FIBRILLATION, CONGESTIVE HEART FAILURE CARDIAC HISTORY: CATHERIZATION: NO SURGERY: NO PROSTHETIC VALVE: NO PACEMAKER: NO MEASUREMENTS (cm) DIASTOLIC (NORMALS) SYSTOLIC (NORMALS) IVSd 0.9 (0.6-1.2) LA Diam 3.5 (1.9-4.0) LVEF 76% LVIDd 4.9 (3.5-5.7) LVIDs 2.7 (2.0-3.5) %FS 45% LVPWd 1.0 (0.6-1.2) Ao Diam 3.2 (2.0-3.7) 2 DIMENSIONAL ASSESSMENT: RIGHT ATRIUM: NORMAL LEFT ATRIUM: NORMAL RIGHT VENTRICLE: NORMAL LEFT VENTRICLE: NORMAL TRICUSPID VALVE: NORMAL MITRAL VALVE: NORMAL PULMONIC VALVE: NORMAL AORTIC VALVE: NORMAL PERICARDIAL EFFUSION: NONE AORTIC ROOT: NORMAL LEFT VENTRICULAR WALL MOTION: NORMAL DOPPLER/COLOR FLOW: NORMAL COMMENTS: NORMAL LEFT VENTRICULAR EJECTION FRACTION. NORMAL 2D ECHOCARDIOGRAM STRUCTURES. ATRIAL FIBRILLATION. HEART RATE 80-85 BEATS PER MINUTE. TECHNOLOGIST: Clover KELLOGG
[2019-07-11 16:34] VITALS: BP 137/69; TEMP 98.6
[2019-07-11] MEDS ORDERED: METOPROLOL XL 50 MG TAB PO SCH (21:00)
== END 2019-07-11 16:24 | disposition home or self-care (01) ==
LOC: ER 15:39 → INTOOBSV 17:52 → ERHOLD 17:52 → 4TH 20:06
PROVIDERS: ADMIT Family Medicine; ATTEND Family Medicine
DX: I48.20 Chronic atrial fibrillation, unspecified (principal); M06.9 Rheumatoid arthritis, unspecified; K21.9 Gastro-esophageal reflux disease without esophagitis; E78.5 Hyperlipidemia, unspecified; Z79.01 Long term (current) use of anticoagulants; Z79.52 Long term (current) use of systemic steroids; I11.0 Hypertensive heart disease with heart failure; I50.9 Heart failure, unspecified
CPT/HCPCS: 93005; 93306; 85025 ×2; 80048 ×2; 36415; 83735 ×2; 85610; 80061; 80076; 84443 ×2; 81003; 84484 ×2; 82553; 84439; 83880; 71045; 96372; 99285; J1160; J3475; J1650 ×2; J7040; J7030 ×2; G0378 ×3; J7512

== ENCOUNTER 2020-03-03 06:37 | Day surgery (SDC) | payer OTHER ==
--- NOTE | 2020-02-29 10:32 | RAD REPORT ---
EXAM DESCRIPTION: RAD - Chest Pa And Lat (2 Views) - 02/29/2020 10:24 am CLINICAL HISTORY: preop Chest pain. COMPARISON: Chest Pa And Lat (2 Views) dated 10/23/2019; Chest Single View dated 07/10/2019 FINDINGS: The lungs are mildly hyperexpanded with minimal linear atelectasis in both lung bases. The heart is mildly enlarged in size. No displaced fractures.
[2020-02-29 12:02] LABS: Basophils % 0.8 % (0-1.3); Hematocrit 42.5 % (39.6-49.0); Lymphocytes % 9.8 % (15.3-44.8); MPV 9.4 fL (7.6-11.3); RBC Red Blood Cell Count 4.79 M/uL (4.33-5.43)
[2020-02-29 12:18] LABS: Protime INR 1.49
[2020-02-29 12:26] LABS: Potassium 4.3 mmol/L (3.5-5.1)
--- OUTSIDE RECORDS SUMMARY | 2020-03-03 06:39 | XMS REPORT | Continuity of Care Document ---
:1950 Author Organization [facility] t Address [address] [place] [address] Care Team Providers Name Role Phone Unavailable Unavailable Unavailable Problems Condition Condition Condition Status Onset Resolution Last Treating Co mments Source Name Details Category Date Date Treatment Clinician Date Hospital Hospital Problem [facility] - follow-up follow-up Jose solomon l Outpati ent Clinics Essential Essential Problem Active [facility] hypertensi hypertensi Dina kes - on on Memoria l Outpati ent Clinics Rheumatoid Rheumatoid Problem Active [facility] arthritis, arthritis, Dina kes - involving involving Jose solomon unspecifie unspecifie l d site, d site, Outpati unspecifie unspecifie en t d d Clinics rheumatoid rheumatoid factor factor presence presence Gastroesop Gastroesop Problem Active [facility] hageal hageal [facility] - reflux reflux Memoria disease, disease, l esophagiti esophagiti Ou tpati s presence s presence en t not not Clinics specified specified Erectile Erectile Problem Active [facility] dysfunctio dysfunctio Dina kes - n, n, Memoria unspecifie unspecifie l d erectile d erectile Ou tpati dysfunctio dysfunctio en t n type n type Clinics History of History of Problem Active [facility] cardiac cardiac [facility] - radiofrequ radiofrequ Me moria ency ency l ablation ablation Outpat i (RFA) (RFA) ent Clinics Congestive Congestive Problem Active [facility] heart heart [facility] - failure, failure, Memori a unspecifie unspecifie l d HF d HF Outpati chronicity chronicity en t , , Clinics unspecifie unspecifie d heart d heart failure failure type type Atrial Atrial Problem Active [facility] fibrillati fibrillati Dina kes - on, on, Memoria unspecifie unspecifie l d type d type Outpati ent Clinics Allergies, Adverse Reactions, Alerts Allergy Allergy Status Severity Reaction(s) Onset Inactive Treating Comm ents Source Name Type Date Date Clinician Sotalol Adverse Active Info Not [facility] HCl Reaction Available [facility] Medications Ordered Filled Start Stop Current Ordering Indication Dosage Frequency Signature Comments Components Source Medication Medication Date Date Medication? Clinician (SIG) Name Name Leflunomide Leflunomide 2018-09- No Nicky [address] [facility] -10-05 Millender [facility] - 00:00: 00:00 Memoria 00 :00 [facility] PredniSONE PredniSONE 2018-09- No Nicky [address] [facility] -12 09-06 Millender [facility] - 00:00: 00:00 Memoria 00 :00 [facility] Metoprolol Metoprolol Yes Nicky [address] [facility] Tartrate Tartrate Millender with food [facility] Folic Acid Folic Acid Yes Nicky [address] [facility] [address] Millender [facility] Torsemide Torsemide Yes Nicky as [facility] Millender directed [facility] atorvastati atorvastati Yes Nicky [address] [facility] n n Millender by mouth [facility] - at bedtime Memoria l [facility] Klor-Con 10 Klor-Con 10 Yes Nicky [address] [facility] Millender with food [facility] Pantoprazol Pantoprazol Yes Nicky [address] [facility] e Sodium e Sodium Millender Dina kes - Memoria l [facility] Eliquis 5 Eliquis 5 Yes Nicky one [facility] mg mg Millender [facility] Clinics PrednisoLON PrednisoLON Yes Nicky [address] [facility] [facility] [address] E Millender in the [facility] - morning Memoria with food l or milk [facility] Clinics Gabapentin Gabapentin Yes Nicky [address] Millender [facility] Clinics Immunizations Ordered Filled Immunization Date Status Comments Sourc e Immunization Name Name Prevnar 13 Prevnar 13 2019-08-[address] [facility] - -Pneumonia Vaccine -Pneumonia Vaccine 00:00:00 [facility] Procedures This patient has no known procedures. Encounters Start End Encounter Admission Attending Care Care Encounter Source Date/Time Date/Time Type Type Clinicians Facility Department ID 2019-09-05 2019-09-05 [facility] [id number] [facility] 22:22:00 22:22:00 [facility] 2019-09-05 2019-09-05 Outpatient Jordyn Santo [id number] 11:20:00 11:20:00 [facility] 2019-08-07 2019-08-07 Outpatient Jordyn aSnto [id number] [facility] 15:20:00 15:20:00 [facility] ent Clinics Results This patient has no known results.
[2020-03-03] MEDS ORDERED: NA CHLORIDE 0.9% 500 ML ONE (06:55)
[2020-03-03] MEDS ORDERED: MIDAZOLAM HCL 5 MG/5 ML INJ ONE ×2 (07:14)
[2020-03-03] MEDS ORDERED: ATROPINE SULF 1 MG/10 ML SYR IV ONE (07:14)
[2020-03-03 08:52] VITALS: O2SAT 98
[2020-03-03 09:17] VITALS: BP 100/69; TEMP 97.9
--- NOTE | 2020-03-03 10:15 | OP ---
Surgeon: Kimo Mabry MD Block Engraver: Isabelle Oswald. Procedure: Direct current cardioversion. Indication: Atrial flutter that has failed ablation in the past. Mr. Prsaad is a 69-year-old male, has had an ablation in the past, had come in with recurrent atrial fibrillation approximately 3 jewel hs ago, had become symptomatic. He had been on metoprolol and Eliquis. He was scheduled for cardiov ersion today. Description Of Procedure: He was given 5 mg of Versed IV push x1 dose. He received 1 shock of 200 j oules and he converted to sinus rhythm. There were no complications. The patient woke up shortly af ter the cardioversion without any complaint. The plan is to stop metoprolol, start Multaq 400 b.i.d. , continue the Eliquis. He will go home when he wakes up today. Final Diagnosis: Status post successful cardioversion of atrial flutter to sinus rhythm. WILFRIDO/ELLIE Voice ID: [id number] Report ID: [id number]
--- NOTE | 2020-03-04 11:47 | EKG ---
Test Date: 2020-03-03 Test Time: 06:25:51 [employer]: JARED MEASUREMENT RESULTS: Intervals: Rate: 62 UT: 218 QRSD: 114 QT: 472 QTc: 479 [place]: P: 73 UT: 218 QRS: -45 T: -23 INTERPRETIVE STATEMENTS: Sinus rhythm with 1st degree AV block with fusion complexes Left axis deviation RSR' or QR pattern in V1 suggests right ventricular conduction delay Minimal voltage criteria for LVH, may be normal variant Inferior infarct, age undetermined Abnormal ECG Compared to ECG 07/10/2019 15:51:11 Fusion complex(es) now present First degree AV block now present RSR' in V1 or V2 now present Myocardial infarct finding now present Atrial fibrillation no longer present Ventricular premature complex(es) no longer present Right bundle-branch block no longer present Early repolarization no longer present Electronically Signed On 03-04-20 11:43:25 CDT by Kimo Mabry
== END 2020-03-03 09:10 | disposition home or self-care (01) ==
LOC: CCL 06:37
DX: I48.91 Unspecified atrial fibrillation (principal); I10 Essential (primary) hypertension; R06.02 Shortness of breath; E78.5 Hyperlipidemia, unspecified; K21.9 Gastro-esophageal reflux disease without esophagitis
CPT/HCPCS: 93005; 85025; 80048; 36415; 85610; 85730; 71046; 92960; J2250; J7040

== ENCOUNTER 2020-06-18 06:33 | Day surgery (SDC) | payer OTHER ==
[2020-06-17 16:06] LABS: Basophils % 0.9 % (0-1.3); Hematocrit 40.4 % (39.6-49.0); Lymphocytes % 9.1 % (15.3-44.8); MPV 9.4 fL (7.6-11.3); RBC Red Blood Cell Count 4.59 M/uL (4.33-5.43)
[2020-06-17 16:14] LABS: Protime INR 1.55
[2020-06-17 16:29] LABS: Potassium 5.1 mmol/L (3.5-5.1)
--- OUTSIDE RECORDS SUMMARY | 2020-06-18 06:36 | XMS REPORT | Continuity of Care Document ---
:1950 Author Organization [facility] t Address [address] [place] [address] Care Team Providers Name Role Phone Unavailable Unavailable Unavailable Problems Condition Condition Condition Status Onset Resolution Last Treating Co mments Source Name Details Category Date Date Treatment Clinician Date Hospital Hospital Problem Active [facility] - follow-up follow-up Jose solomon l Outpati ent Clinics Essential Essential Problem Active [facility] hypertensi hypertensi Malgorzata kes - on on [facility] l [facility] ent Clinics Rheumatoid Rheumatoid Diagnosis Active [facility] arthritis, arthritis, Malgorzata kes - involving involving Jose solomon unspecifie unspecifie l d site, d site, Outpati unspecifie unspecifie en t d d Clinics rheumatoid rheumatoid factor factor presence presence Gastroesop Gastroesop Diagnosis Active [facility] hageal hageal [facility] - reflux reflux Memoria disease, disease, l esophagiti esophagiti Ou tpati s presence s presence en t not not Clinics specified specified Erectile Erectile Problem Active [facility] dysfunctio dysfunctio Malgorzata kes - n, n, Memoria unspecifie unspecifie l d erectile d erectile Ou tpati dysfunctio dysfunctio en t n type n type Clinics History of History of Diagnosis Active [facility] cardiac cardiac [facility] - radiofrequ radiofrequ Me moria ency ency l ablation ablation Outpat i (RFA) (RFA) ent Clinics Congestive Congestive Diagnosis Active [facility] heart heart [facility] - failure, failure, Memori a unspecifie unspecifie l d HF d HF Outpati chronicity chronicity en t , , Clinics unspecifie unspecifie d heart d heart failure failure type type Atrial Atrial Diagnosis Active [facility] fibrillati fibrillati Malgorzata kes - on, on, Memoria unspecifie unspecifie l d type d type Outpati ent Clinics Allergies, Adverse Reactions, Alerts Allergy Allergy Status Severity Reaction(s) Onset Inactive Treating Comm ents Source Name Type Date Date Clinician Sotalol Adverse Active Info Not [facility] HCl Reaction Available [facility] l [facility] ent Clinics Medications Ordered Filled Start Stop Current Ordering Indication Dosage Frequency Signature Comments Components Source Medication Medication Date Date Medication? Clinician (SIG) Name Name Lefmalgorzatanomide Lefmalgorzatanomide 2018-09- No Nicky [address] [facility] [facility] -08 26- Millender [facility] - 00:00: 00:00 Memoria 00 :00 l [facility] ent Clinics Torsemide Torsemide Yes Nicky [address] Millender [facility] Clinics atorvastati atorvastati Yes Nicky [address] n n Millender in evening Luke s - Memoria l [facility] ent Clinics Eliquis 5 Eliquis 5 Yes Nicky [address] mg mg Millender [facility] - Memoria l [facility] Clinics PrednisoLON PrednisoLON Yes Nicky [address] [facility] E E Millender in the [facility] - morning Memoria with food l or milk [facility] ent Clinics Gabapentin Gabapentin Yes Nicky [address] Millender [facility]ics Prednisone Prednisone Yes Nicky [address] Millender [facility] Clinics Folic Acid Folic Acid Yes Nicky [address] Millender [facility] - [facility] l [facility] Clinics Hydroxychlo Hydroxychlo Yes Nicky as [facility] roquine roquine Millender directed [facility] - Sulfate Sulfate Memoria l [facility] ent Clinics Multaq Multaq Yes Nicky [address] Millender [facility] - [facility] l [facility] Clinics Klor-Con 10 Klor-Con 2020- No Nicky [address] [facility] -11 Millender with food Luke s - 00:00 (take with Memoria :00 torsemide) l [facility] ent Clinics Immunizations Ordered Filled Immunization Date Status Comments Sourc e Immunization Name Name Prevnar 13 Prevnar 13 2019-08-[address] [facility] - -Pneumonia Vaccine -Pneumonia Vaccine 00:00:00 [facility] Procedures This patient has no known procedures. Encounters Start End Encounter Admission Attending Care Care Encounter Source Date/Time Date/Time Type Type Clinicians Facility Department ID 2020-06-06 2020-06-06 [facility] [id number] 15:20:00 15:20:00 [facility] Medicine Outpati ent Clinics 2020-05-21 2020-05-21 [facility] [id number] 13:27:00 13:27:00 [facility] Medicine Outpati ent Clinics 2020-03-09 2020-03-09 [facility] [id number] 23:01:00 23:01:00 [facility] Medicine Outpati ent Clinics 2020-03-06 2020-03-06 [facility] [id number] [facility] 09:20:00 09:20:00 [facility] Medicine Outpati ent Clinics 2019-09-05 2019-09-05 [facility] [id number] [facility] 22:22:00 22:22:00 [facility] Medicine Outpati ent Clinics 2019-09-05 2019-09-05 [facility] [id number] 11:20:00 11:20:00 [facility] Medicine Outpati ent Clinics 2019-08-07 2019-08-07 [facility] [id number] 15:20:00 15:20:00 [facility] Medicine Outpati ent Clinics Results This patient has no known results.
--- OUTSIDE RECORDS SUMMARY | 2020-06-18 06:36 | XMS REPORT ---
:1950 Author Organization [employer] Care Team Providers Name Role Phone Yogesh Singhen Provider Role Unavailable Allergies, Adverse Reactions, Alerts Substance Reaction Event Type Sotalol HCl Info Not Available Drug Allergy Problems Problem Type Condition Code Onset Dates Condition Statu s Assessment Essential hypertension I10 Activ e Problem History of cardiac radiofrequency Z98.890 Active ablation (RFA) Problem Essential hypertension I10 Activ e Problem Hospital discharge follow-up Z09 Active Problem Rheumatoid arthritis, involving M06.9 Active unspecified site, unspecified rheumatoid factor presence Problem Gastroesophageal reflux disease, K21.9 Active esophagitis presence not specified Problem Congestive heart failure, I50.9 Ac tive unspecified HF chronicity, unspecified heart failure type Problem Erectile dysfunction, unspecified N52.9 Active erectile dysfunction type Problem Atrial fibrillation, unspecified I48.91 Active type Assessment Gastroesophageal reflux disease, K21.9 Active esophagitis presence not specified Assessment History of cardiac radiofrequency Z98.890 Active ablation (RFA) Assessment Atrial fibrillation, unspecified I48.91 Active type Assessment Rheumatoid arthritis, involving M06.9 Active unspecified site, unspecified rheumatoid factor presence Assessment Congestive heart failure, I50.9 Ac tive unspecified HF chronicity, unspecified heart failure type Medications Medication Code Code Instructions Start End Status Dosage System Date Date atorvastatin ND 19127548627 20mg Orally Active 1 t ablet Once daily in evening Hydroxychloroquine [facility] 84768942745 200 MG Orally Act manuel as Sulfate as directed directed Klor-Con 10 [facility] 00233425015 10 MEQ Orally Sirena Active 1 tablet Twice a day 11, with food 2020 (take with torsemide) Eliquis 5 mg ND 17168911832 5 mg Orally Active 1 t ablet Twice daily Prednisone NDC 0 Orally Once Active 1 tablet daily Leflunomide ND 79664221918 20 MG Orally Active 1 t ablet Once a day Multaq [facility] 02937237208 400 MG Orally Active 1 tabl et Twice a day Folic Acid [facility] 41221317325 1 MG Orally Active 1 tab let Once a day Torsemide [facility] 53606349545 20 MG Orally Active 1 tab let Once daily PrednisoLONE [facility] 53114121908 5 MG Orally Active 1 t ablet Once a day in the morning with food or milk Gabapentin [facility] 91055151898 300 MG Orally Active 1 c apsule Three times a day Results No Known Results Summary Purpose [employer]ClinicalWorks Submission
--- OUTSIDE RECORDS SUMMARY | 2020-06-18 06:36 | XMS REPORT ---
:1950 Author Organization [employer] Care Team Providers Name Role Phone Nicky Singh Provider Role Unavailable Allergies No Known Allergies Problems Problem Type Condition Code Onset Dates Condition Statu s Assessment Congestive heart failure, I50.9 Ac tive unspecified HF chronicity, unspecified heart failure type Problem History of cardiac radiofrequency Z98.890 Active [...] Problem Atrial fibrillation, unspecified I48.91 Active type Medications Medication Code Code Instructions Start End Date Status Dosage System Date Gabapentin ND 77852885068 300 MG Orally Active 1 c apsule Three times a day Prednisone NDC 0 Orally Once Active 1 tablet daily Eliquis 5 mg [facility] 68718305292 5 mg by mouth Active o ne twice daily atorvastatin ND 69292297308 20mg Orally Once Active 1 tablet daily in evening PrednisoLONE ND 44892811485 5 MG Orally Once Active 1 tablet a day in the morning with food or milk Leflunomide [facility] 66056784035 20 MG Orally Active 1 t ablet Once a day Klor-Con 10 ND 48770965465 10 MEQ Orally Active 1 tablet Twice a day with food Folic Acid [facility] 90710809669 1 MG Orally Once Active 1 tablet a day Torsemide ND 88121863944 20 MG Orally Active 1 tab let Once daily Results No Known Results Summary Purpose eClinicalWorks Submission
[2020-06-18] MEDS ORDERED: NA CHLORIDE 0.9% 500 ML ONE (07:08)
[2020-06-18] MEDS ORDERED: MIDAZOLAM HCL 2 MG/2 ML INJ ONE (07:38)
[2020-06-18] MEDS ORDERED: MIDAZOLAM HCL 5 MG/5 ML INJ ONE (07:39)
[2020-06-18] MEDS ORDERED: ATROPINE SULF 1 MG/10 ML SYR IV ONE (07:39)
[2020-06-18] MEDS ORDERED: FLUMAZENIL 0.1 MG/ML (5 mL VIAL) IV ONE (07:41)
[2020-06-18] MEDS ORDERED: METOPROLOL TARTRATE 5 MG/5 ML INJ IV ONE ×3 (07:54→08:02)
[2020-06-18 08:53] VITALS: TEMP 97.6
[2020-06-18 09:27] VITALS: BP 93/67; O2SAT 96
--- NOTE | 2020-06-19 07:53 | OP ---
Date of Procedure: 06/18/2020 Surgeon: Kimo Mabry MD Grain Sacker: Belem Ferrell. Procedure: Direct current cardioversion. Indication: Atrial flutter. Description Of Procedure: Mr. Prasad is a 69-year-old male with known paroxysmal atrial fibrillatio n. He is status post ablation and has had a cardioversion approximately 2 years ago after his ablati on and has been in sinus rhythm. Has been doing well on Multaq and Eliquis. He came to my office on 06/17/2020 with rapid atrial flutter at a rate of 150 with shortness of breath [facility]. He was given 5 mg of Versed for sedation IV push x1 dose. O2 sa turation was adequate. He was in atrial flutter. He received 1 shock of 100 joules and he converted to sinus rhythm with PACs. His rate remained a little bit high, so he received a total of 15 mg of Lopressor IV push at 3 separate dosages 5 minutes apart. This converted him to a completely sinus [facility] with rare PACs. This was confirmed by EKGs. The patient tolerated the procedure well. Complications: There were no complications. Anesthesia: Total conscious sedation was approximately 30 minutes. Final Diagnosis: Status post cardioversion of atrial flutter, successful. Plan: To continue Multaq and Eliquis. He can go home whenever he wakes up. I will see him in the [facility] in about a week. The case was discussed with his . that if he has recurrent at rial fibrillation on the present regimen, I will refer him back for electrophysiology for possible second ablation. WILFRIDO/ISELAL Voice ID: [id number] Report ID: [id number]
== END 2020-06-18 09:13 | disposition home or self-care (01) ==
LOC: CCL 06:33
DX: I48.92 Unspecified atrial flutter (principal); I48.0 Paroxysmal atrial fibrillation; I10 Essential (primary) hypertension; E78.5 Hyperlipidemia, unspecified; K21.9 Gastro-esophageal reflux disease without esophagitis
CPT/HCPCS: 93005; 85025; 80048; 36415; 85610; 85730; 92960; U0002; J2250; J7040

== ENCOUNTER 2020-08-29 20:04 | Emergency (ER) | payer OTHER ==
--- OUTSIDE RECORDS SUMMARY | 2020-08-29 20:06 | XMS REPORT ---
[...] Status Dosage System Date Date atorvastatin ND 73410935126 20mg Orally Active 1 t ablet Once daily in evening Hydroxychloroquine [facility] 33951567221 200 MG Orally Act manuel as Sulfate as directed directed Klor-Con 10 [facility] 64567936973 10 MEQ Orally Sriena Active 1 tablet Twice a day 11, with food 2020 (take with torsemide) Eliquis 5 mg ND 80571262056 5 mg Orally Active 1 t ablet Twice daily Prednisone NDC 0 Orally Once Active 1 tablet daily Leflunomide ND 88371270875 20 MG Orally Active 1 t ablet Once a day Multaq [facility] 87617965665 400 MG Orally Active 1 tabl et Twice a day Folic Acid [facility] 51681691041 1 MG Orally Active 1 tab let Once a day Torsemide [facility] 30493451581 20 MG Orally Active 1 tab let Once daily PrednisoLONE [facility] 81060839061 5 MG Orally Active 1 t ablet Once a day in the morning with food or milk Gabapentin [facility] 66579538797 300 MG Orally Active 1 c apsule Three times a day Results No Known Results Summary Purpose eClinicalWorks Submission
--- OUTSIDE RECORDS SUMMARY | 2020-08-29 20:06 | XMS REPORT | Continuity of Care Document ---
:1950 Author Organization [facility] t Address [address] [place] [address] Care Team Providers Name Role Phone Unavailable [...] Rheumatoid Diagnosis Active [facility] arthritis, arthritis, Dina kes - involving [...] Atrial Diagnosis Active [facility] fibrillati fibrillati Dina kes - on, on, Memoria unspecifie unspecifie l d type d type Outpati ent Clinics Allergies, Adverse Reactions, Alerts Allergy Allergy Status Severity Reaction(s) Onset Inactive Treating Comm ents Source Name Type Date Date Clinician Sotalol Adverse Active Info Not [facility] HCl Reaction Available [facility] Medications Ordered Filled Start Stop Current Ordering Indication Dosage Frequency Signature Comments Components Source Medication Medication Date Date Medication? Clinician (SIG) Name Name Tyler Chicase 2018-09- No Nicky [address] [facility] -12 01-10 [facility] - 00:00: 00:00 Memoria 00 :00 [facility] Torsemide Torsemide Yes Nicky [address] [facility] [facility] Millender [facility] atorvastati atorvastati Yes Nicky [address] [facility] n n Millender in evening Luke s - Memoria l [facility] Eliquis 5 Eliquis 5 Yes Nicky [address] [facility] mg mg Millender [facility] - [facility]oria [facility] Clinics PrednisoLON PrednisoLON Yes Nicky [address] [facility] [address] E Millender in the [facility]ukes - morning Memoria with food l or milk [facility] Gabapentin Gabapentin Yes Nicky [address] Millender [facility] Prednisone Prednisone Yes Nicky [address] [facility] [facility] Millender [facility] Folic Acid Folic Acid Yes Nicky [address] [facility] [facility] Millender [facility] Hydroxychlo Hydroxychlo Yes Nicky as [facility] roquine roquine Millender directed [facility] - Sulfate Sulfate [facility]oria [facility] Multaq Multaq Yes Nicky [address] Millender [facility] Klor-Con 10 Klor-Con 2020- No Nicky [address] [facility] [facility] 06-11 Millender with food Luke s - 00:00 (take with Memoria :00 torsemide) l [facility] Immunizations Ordered Filled Immunization Date Status Comments Sourc e Immunization Name Name Prevnar 13 Prevnar 13 2019-08-[address] [facility] - -Pneumonia Vaccine -Pneumonia Vaccine 00:00:00 [facility] Procedures This patient has no known procedures. Encounters Start End Encounter Admission Attending Care Care Encounter Source Date/Time Date/Time Type Type Clinicians Facility Department ID 2020-06-06 2020-06-06 [facility] [id number] 15:20:00 15:20:00 t [facility] Medicine Outpati ent Clinics 2020-05-21 2020-05-21 [facility] [id number] 13:27:00 13:27:00 t [facility] Medicine Outpati ent Clinics 2020-03-09 2020-03-09 [facility] [id number] [facility] 23:01:00 23:01:00 t [facility] Medicine Outpati ent Clinics 2020-03-06 2020-03-06 [facility] [id number] 09:20:00 09:20:00 t [facility] Medicine Outpati ent Clinics 2019-09-05 2019-09-05 [facility] [id number] [facility] 22:22:00 22:22:00 [facility] Medicine Outpati ent Clinics 2019-09-05 2019-09-05 [facility] [id number] [facility] 11:20:00 11:20:00 [facility] Medicine Outpati ent Clinics 2019-08-07 2019-08-07 [facility] [id number] [facility] 15:20:00 15:20:00 [facility] Medicine Outpati ent Clinics Results This patient has no known results.
[2020-08-29] MEDS ORDERED: NA CHLORIDE 0.9% 1,000 ML ONE (22:26)
[2020-08-29 22:28] LABS: Protime INR 3.84
[2020-08-29 22:29] LABS: Absolute Lymphocytes (CBC) 0.6 K/uL (0.7-4.9); Basophils % 0.4 % (0-1.3); Hematocrit 46.3 % (39.6-49.0); Lymphocytes % 5.4 % (15.3-44.8); MPV 10.9 fL (7.6-11.3); RBC Red Blood Cell Count 5.29 M/uL (4.33-5.43)
[2020-08-29 22:53] LABS: Albumin 3.7 g/dL (3.4-5.0); Bilirubin Direct 1.2 mg/dL (0-0.2); Magnesium 2.7 mg/dL (1.8-2.4); Potassium 5.4 mmol/L (3.5-5.1); Protein, Total 7.4 g/dL (6.4-8.2); Troponin (Emerg Dept Use Only) 0.07 ng/mL (0.0-0.045)
[2020-08-29 23:46] LABS: Blood Gas Oxyhemoglobin 94.2 % (94-97); Blood O2 Saturation 95.9 % (92-98.5)
--- NOTE | 2020-08-30 03:32 | EDPHYS ---
Physician Documentation [facility] Name: Spencer Prasad Age: 69 yrs Sex: Male : 1950 Arrival Date: 08/29/2020 Time: 20:07 Bed 4 Private MD: ED Physician Oseas Sandhu HPI: 08/30 03:20 This 69 yrs old Male presents to ER via Wheelchair with complaints of pkl Breathing Difficulty. 03:20 The patient has shortness of breath at rest. Onset: The symptoms/episode began/occurred pkl 2 day(s) ago, and became worse just prior to arrival. Associated signs and symptoms: Pertinent positives: palpitations. Patient has appt. with Dr Dos Santos ( EP ) on 09/03/20 for a procedure. Historical: - Allergies: 08/29 21:27 Sotalol; lp1 - PMHx: 21:27 Atrial Fib; lp1 - PSHx: 21:27 heart ablasion; lp1 - Immunization history:: Adult Immunizations up to date, Flu vaccine is not up to date. - Social history:: Smoking status: Patient/guardian denies using tobacco, the patient reports quitting approximately 30 years ago. ROS: 08/30 03:20 Eyes: Negative for injury, pain, redness, and discharge, ENT: Negative for injury, pkl pain, and discharge, Neck: Negative for injury, pain, and swelling. Cardiovascular: Positive for palpitations. Respiratory: Positive for shortness of breath, at rest. Abdomen/GI: Negative for abdominal pain, nausea, vomiting, and diarrhea. Back: Negative for acute changes. : Negative for urinary symptoms. MS/extremity: Negative for acute changes. Skin: Negative for rash. Neuro: Negative for altered mental status, loss of consciousness. Exam: 03:20 Head/Face: Normocephalic, atraumatic. Eyes: Pupils equal round and reactive to light, pkl extra-ocular motions intact. Lids and lashes normal. Conjunctiva and sclera are non-icteric and not injected. Cornea within normal limits. Periorbital areas with no swelling, redness, or edema. ENT: Nares patent. No nasal discharge, no septal abnormalities noted. Tympanic membranes are normal and external auditory canals are clear. Oropharynx with no redness, swelling, or masses, exudates, or evidence of obstruction, uvula midline. Mucous membranes moist. Neck: Trachea midline, no thyromegaly or masses palpated, and no cervical lymphadenopathy. Supple, full range of motion without nuchal rigidity, or vertebral point tenderness. No Meningismus. Chest/axilla: Normal chest wall appearance and motion. Nontender with no deformity. No lesions are appreciated. 03:20 Cardiovascular: Rate: Preet- Tachy rhythm. 03:20 ECG was reviewed by the Attending Physician. 03:20 Respiratory: the patient does not display signs of respiratory distress, Respirations: normal, Breath sounds: rales, that are mild, are scattered. 03:20 Abdomen/GI: Bowel sounds: normal, Palpation: abdomen is soft and non-tender, in all quadrants. 03:20 Back: Exam negative for acute changes. 03:20 : Exam negative for acute changes. 03:20 Musculoskeletal/extremity: Exam is negative for acute changes. 03:20 Skin: Exam negative for rash. 03:20 Neuro: Orientation: is normal, Mentation: is normal, Cranial nerves: grossly normal, Motor: is normal. Vital Signs: 04 21:24 BP 122 / 32; Pulse 32; Resp 26; Temp 97.9(TE); Pulse Ox 100% on R/A; Weight 102.06 kg; lp1 Height 6 ft. 0 in. (182.88 cm); Pain 0/10; 21:26 BP 111 / 52; Pulse 33; lp1 22:26 BP 120 / 63; Pulse 37; Resp 24; Pulse Ox 99% on 1 lpm NC; zb 23:26 BP 128 / 109; Pulse 28; Resp 20; Pulse Ox 98% on 1 lpm NC; zb 12/05 00:44 BP 97 / 43; Pulse 34; Resp 14; Pulse Ox 94% on 2 lpm NC; lp1 01:30 BP 99 / 65; Pulse 58; Resp 19; Pulse Ox 99% on 2 lpm NC; lp1 03:00 BP 99 / 48; Pulse 40; Resp 19; Pulse Ox 97% on 2 lpm NC; lp1 03:25 Pulse 39; Resp 19; Temp 97.7; Pulse Ox 97% on 2 lpm NC; lp1 04:10 BP 97 / 48; Pulse 36; Resp 19; Pulse Ox 97% on 2 lpm NC; Pain 0/10; lp1 12/04 21:24 Body Mass Index 30.52 (102.06 kg, 182.88 cm) lp1 08/29 22:26 ECP notified of pulse rate, pacer pad placed on patient. zb 23:26 Provider noted of heart rate zb MDM: 21:49 Patient medically screened. pkl 08/30 03:27 Data reviewed: vital signs, nurses notes, lab test result(s), EKG, radiologic studies, pkl CT scan, plain films. ED course: Talked to Dr. Hunter ( call center operator for Dr. Dos Santos ) Transfer to [facility]. 08/29 21:58 Order name: Basic Metabolic Panel; Complete Time: 23:12 pkl 08/29 21:58 Order name: CBC with Diff; Complete Time: 23:12 pkl 08/29 21:58 Order name: LFT's; Complete Time: 23:12 pkl 08/29 21:58 Order name: Magnesium; Complete Time: 23:12 pkl 08/29 21:58 Order name: NT PRO-BNP; Complete Time: 23:12 pkl 08/29 21:58 Order name: PT-INR; Complete Time: 23:12 pkl 08/29 21:58 Order name: Troponin (emerg Dept Use Only); Complete Time: 23:12 pkl 08/29 21:50 Order name: XRAY Chest (1 view) [facility] 08/29 21:50 Order name: EKG; Complete Time: 21:51 jd3 08/29 21:50 Order name: Cardiac monitoring; Complete Time: 21:50 [facility] 08/29 21:50 Order name: EKG - Nurse/Tech; Complete Time: 21:51 jd3 08/29 21:50 Order name: IV Saline Lock; Complete Time: 22:11 jd3 08/29 21:50 Order name: Labs collected and sent; Complete Time: 22:11 jd3 08/29 21:50 Order name: O2 Per Protocol; Complete Time: 21:51 jd3 08/29 21:50 Order name: O2 Sat Monitoring; Complete Time: 21:51 jd3 08/29 21:58 Order name: EKG; Complete Time: 21:59 pkl 08/29 23:20 Order name: ABG; Complete Time: 00:21 pkl 08/29 23:24 Order name: CT Chest Wo Con pkl 08/30 02:10 Order name: SARS-COV-2 RT PCR; Complete Time: 03:33 EDMS Administered Medications: Discontinued: NS 0.9% 1000 ml IV at 125 ml/hr continuous 08/29 22:25 Drug: NS 0.9% 1000 ml Route: IV; Rate: 125 ml/hr; Site: right antecubital; zb 08/30 00:26 Follow up: Response: No adverse reaction; IV Status: Completed infusion; IV Intake: zb 250ml 00:26 Drug: NS 0.9% 1000 ml Route: IV; Rate: 75 ml/hr; Site: right antecubital; zb 01:59 Follow up: Rate change 125 ml/hr lp1 04:11 Follow up: IV Status: Infusion continued upon transfer lp1 Disposition: 03:27 Critical Care:. pkl Disposition: 08/30/20 03:31 Transfer ordered to [facility]. Diagnosis is Dyspnea. Palpitations ( Preet - Tachy rhythm ) Elevated liver functions. Elevated renal functions. - Reason for transfer: Higher level of care. - Accepting physician is Dr. Partida. - Condition is Stable. - Problem is new. - Symptoms are unchanged. Critical care time excluding procedures: 03:27 Critical care time: Consultation: 10 minutes. Total time: 10 minutes pkl Signatures: Dispatcher [employer] EDMS Oseas Sandhu MD MD pkl Essence Bailey RN RN lp1 Silvio Baez RN RN Monika Kiser RN KENYON cortez Corrections: (The following items were deleted from the chart) 08/29 22:11 21:58 Cardiac monitoring ordered. pkl jd3 22:11 21:58 O2 Sat Monitoring ordered. pkl jd3 22:12 21:58 EKG - Nurse/Tech ordered. pkl jd3 22:12 21:58 IV Saline Lock ordered. pkl jd3 22:12 21:58 Labs collected and sent ordered. pkl jd3 22:12 21:58 Oxygen Per Protocol ordered. pkl jd3 22:16 21:59 Chest Single View+RAD.RAD.BRZ ordered. EDMS EDMS 23:21 21:51 PROTIME (+INR)+COAG.LAB.BRZ ordered. EDMS EDMS 23:22 21:51 BASIC METABOLIC PANEL+C.LAB.BRZ ordered. EDMS EDMS 23:22 21:51 CBC+H.LAB.BRZ ordered. EDMS EDMS 23:22 21:51 HEPATIC FUNCTION+C.LAB.BRZ ordered. EDMS EDMS 23:22 21:51 MAGNESIUM+C.LAB.BRZ ordered. EDMS EDMS 23:22 21:51 PROBNP+C.LAB.BRZ ordered. EDMS EDMS 23:22 21:51 TROPONIN (EMERG DEPT USE ONLY)+C.LAB.BRZ ordered. EDMS EDMS 08/30 01:13 00:49 CORONAVIRUS+MR.LAB.BRZ ordered. EDMS EDMS 04:12 03:31 08/30/2020 03:31 Transfer ordered to [facility]. Diagnosis is Dyspnea. lp1 Palpitations ( Preet - Tachy rhythm ) Elevated liver functions. Elevated renal functions. Reason for transfer: Higher level of care. Accepting physician is Dr. Partida. Condition is Stable. Problem is new. Symptoms are unchanged. pkl
--- NOTE | 2020-08-30 03:32 | ER ---
Nurse's Notes [facility] Name: Spencer Prasad Age: 69 yrs Sex: Male : 1950 Arrival Date: 08/29/2020 Time: 20:07 Bed 4 Private MD: Diagnosis: Dyspnea. Palpitations ( Preet - Tachy rhythm ) Elevated liver functions. Elevated renal functions Presentation: 08/29 21:24 Chief complaint: Patient states: Increasing shortness of breath the last 3 days; lp1 Reports plan to have cardioversion on Tuesday09/03/20; Hx of Afib, CHF. Coronavirus screen: Client denies travel out of the [place] in the last 14 days. shortness of breath. Ebola Screen: No symptoms or risks identified at this time. Initial Sepsis Screen: Does the patient meet any 2 criteria? RR > 20 per min. Does the patient have a suspected source of infection? No. Patient's initial sepsis screen is negative. Risk Assessment: Do you want to hurt yourself or someone else? Patient reports no desire to harm self or others. Onset of symptoms was August 29, 2020. 21:24 Method Of Arrival: Wheelchair lp1 21:24 Acuity: LOUISE 2 lp1 Historical: - Allergies: 21:27 Sotalol; lp1 - PMHx: 21:27 Atrial Fib; lp1 - PSHx: 21:27 heart ablasion; lp1 - Immunization history:: Adult Immunizations up to date, Flu vaccine is not up to date. - Social history:: Smoking status: Patient/guardian denies using tobacco, the patient reports quitting approximately 30 years ago. Screenin:30 Abuse screen: Denies threats or abuse. Denies injuries from another. Nutritional zb screening: No deficits noted. Tuberculosis screening: No symptoms or risk factors identified. Fall Risk No fall in past 12 months (0 pts). No secondary diagnosis (0 pts). IV access (20 points). Ambulatory Aid- None/Bed Rest/Nurse Assist (0 pts). Gait- Normal/Bed Rest/Wheelchair (0 pts) Mental Status- Oriented to own ability (0 pts). Total Plasencia Fall Scale indicates No Risk (0-24 pts). Assessment: 22:26 General: Appears in no apparent distress. uncomfortable, Behavior is calm, cooperative, zb Reports feeling ill for fatigue for. Pain: Denies pain. Neuro: Level of Consciousness is awake, alert, obeys commands, Oriented to person, place, time, situation. Cardiovascular: Reports fatigue, lightheadedness, nausea, Denies chest pain, Heart tones muffled Capillary refill is > 3 seconds is sluggish in bilateral fingers Pulses are palpable in right radial artery and left radial artery Edema is 3+ to left midcalf, left ankle, left foot, left toes, right midcalf, right ankle, right foot and right toes pitting to left midcalf, left ankle, left foot, left toes, right midcalf, right ankle, right foot and right toes Rhythm is sinus bradycardia. Respiratory: Reports shortness of breath labored breathing Airway is patent Respiratory effort is labored, shallow, Respiratory pattern is tachypnea adventitious sounds noted the patient has moderate shortness of breath. GI: No signs and/or symptoms were reported involving the gastrointestinal system. Abdomen is round distended, obese. : No signs and/or symptoms were reported regarding the genitourinary system. EENT: Derm: Skin is intact, is healthy with good turgor, Skin is pale, Skin temperature is cool. Musculoskeletal: Circulation, motion, and sensation intact. Range of motion: intact in all extremities. 23:26 Reassessment: Patient appears in no apparent distress at this time. Patient and/or zb family updated on plan of care and expected duration. Pain level reassessed. Patient is alert, oriented x 3, equal unlabored respirations, skin warm/dry/pink. remains at bedside. pt has bouts of tachypnea and remains bradycardic. states he is comfortable, hob elevated to 30 or more degrees. 12 00:45 Reassessment: Patient appears in no apparent distress at this time. Patient resting, lp1 eyes closed, respirations even; aware of waiting for CT results. 01:57 Reassessment: Patient appears in no apparent distress at this time. Patient and/or lp1 family updated on plan of care and expected duration. Pain level reassessed. Verbal order from Provider to increase NS to 125ml/hr; provider has discuss plan of care with patient and family and possible transfer plans. 03:00 Reassessment: Assisted patient to bathroom at this time via WC; no further needs. lp1 03:44 Reassessment: Report called to KENYON Tejeda for patient transfer to [facility] ICU Rm 4. lp1 03:55 Reassessment: EMS at bedside for transfer;. lp1 Vital Signs: 12 21:24 BP 122 / 32; Pulse 32; Resp 26; Temp 97.9(TE); Pulse Ox 100% on R/A; Weight 102.06 kg; lp1 Height 6 ft. 0 in. (182.88 cm); Pain 0/10; 21:26 BP 111 / 52; Pulse 33; lp1 22:26 BP 120 / 63; Pulse 37; Resp 24; Pulse Ox 99% on 1 lpm NC; zb 23:26 BP 128 / 109; Pulse 28; Resp 20; Pulse Ox 98% on 1 lpm NC; zb 12/ 00:44 BP 97 / 43; Pulse 34; Resp 14; Pulse Ox 94% on 2 lpm NC; lp1 01:30 BP 99 / 65; Pulse 58; Resp 19; Pulse Ox 99% on 2 lpm NC; lp1 03:00 BP 99 / 48; Pulse 40; Resp 19; Pulse Ox 97% on 2 lpm NC; lp1 03:25 Pulse 39; Resp 19; Temp 97.7; Pulse Ox 97% on 2 lpm NC; lp1 04:10 BP 97 / 48; Pulse 36; Resp 19; Pulse Ox 97% on 2 lpm NC; Pain 0/10; lp1 12/04 21:24 Body Mass Index 30.52 (102.06 kg, 182.88 cm) lp1 08/29 22:26 ECP notified of pulse rate, pacer pad placed on patient. zb 23:26 Provider noted of heart rate zb ED Course: 20:07 Patient arrived in ED. cl3 21:26 Triage completed. lp1 21:26 Arm band placed on. EKG completed in triage. Results shown to MD. lp1 21:49 Oseas Sandhu MD is Attending Physician. pkl 22:04 called the answering service of Dr. Mendez the ply splicer at [phone]. spoke with micaela Concepcion to have Dr. Mendez do a consult with Dr. Sandhu. 22:06 Monika Plaza, KENYON is Primary Nurse. zb 22:20 XRAY Chest (1 view) In Process Unspecified. EDMS 22:30 Inserted saline lock: 20 gauge in right antecubital area, using aseptic technique. zb 22:42 Patient has correct armband on for positive identification. Bed in low position. Call zb light in reach. Side rails up X 1. clinical research monitor on. Pulse ox on. NIBP on. 12 00:08 CT Chest Wo Con In Process Unspecified. EDMS 00:30 Report received from KENYON Carroll. lp1 01:30 initiated a transfer with Thea Field from [facility]. mw2 02:29 doc to doc with the assistant restaurant general manager from [facility]. mw2 03:07 administrative approval given by Thea Field/ patient has been accepted to [facility] to the [place] [id number] ICU bed 4/ Dr. Partida has accepted the patient in transfer/ report to be called to [phone]. 04:11 No provider procedures requiring assistance completed. Patient transferred, IV remains lp1 in place. Administered Medications: Discontinued: NS 0.9% 1000 ml IV at 125 ml/hr continuous 08/29 22:25 Drug: NS 0.9% 1000 ml Route: IV; Rate: 125 ml/hr; Site: right antecubital; zb 08/30 00:26 Follow up: Response: No adverse reaction; IV Status: Completed infusion; IV Intake: zb 250ml 00:26 Drug: NS 0.9% 1000 ml Route: IV; Rate: 75 ml/hr; Site: right antecubital; zb 01:59 Follow up: Rate change 125 ml/hr lp1 04:11 Follow up: IV Status: Infusion continued upon transfer lp1 Intake: 00:26 IV: 250ml; Total: 250ml. zb Outcome: 03:31 ER care complete, transfer ordered by . jihan 04:11 Transferred by ground EMS to [facility], Transfer form completed. X-rays lp1 sent w/ patient. 04:11 critical 04:11 Instructed on the need for transfer. 04:12 Patient left the ED. lp1 Signatures: Dispatcher [employer] EDMS Oseas Sandhu MD MD pkl Pena, Laura, RN RN lp1 Issa Lorenz mw2 Britany Gordon 3 Brown, Monika, RN RN zb Corrections: (The following items were deleted from the chart) 08/29 22:15 22:04 called the answering service of Dr. Mendez the ply splicer. spoke with Jamey to [facility] have Dr. Mendez do a consult with Dr. Sandhu mw2 08/30 00:46 08/29 22:26 BP 120 / 63; Pulse 37bpm; Resp 24bpm; Pulse Ox 99% 1 lpm Nasal Cannula; zb zb 08/30 00:46 08/29 23:26 BP 128 / 109; Pulse 28bpm; Resp 20bpm; Pulse Ox 98% 1 lpm Nasal Cannula; zb zb
--- NOTE | 2020-08-30 08:49 | RAD REPORT ---
EXAM DESCRIPTION: Kameron Single View08/29/2020 10:19 pm CLINICAL HISTORY: Shortness of breath COMPARISON: February 2020 FINDINGS: Small bilateral pleural effusions Mild bibasilar lung atelectasis Heart is moderately enlarged
--- NOTE | 2020-08-30 09:15 | RAD REPORT ---
EXAM DESCRIPTION: CT - Thorax Wo Micah - 08/30/2020 6:26 am CLINICAL HISTORY: SOB COMPARISON: None Available TECHNIQUE: Multiple helical axial tomographic images were obtained of the chest without intravenous contrast. Coronal and sagittal reformatted images were obtained. This exam was performed according to our departmental dose-optimization program, which includes autom ated exposure control, adjustment of the mA and/or kV according to patient size and/or use of iterati ve reconstruction technique. FINDINGS: Thyroid gland: unremarkable. Axilla: unremarkable. Aorta: Aortic atherosclerosis is present. No evidence of aortic aneurysm. Mediastinum: Unremarkable. No adenopathy. Heart: Heart is mildly enlarged. Lungs/airways: No consolidation. Airways are patent. There are few scattered nodular densities in bot h lungs with largest in the right upper lobe measuring 1.3 cm (series 202, image 97). Mild centrilobu lar emphysematous changes are present. There is mild pulmonary interstitial thickening. Pleural spaces: Small bilateral pleural effusions are present. No pneumothorax. Osseous: Degenerative changes of the spine noted. Soft tissues: Unremarkable. Visualized abdomen: There is low-attenuation suggesting fatty changes. IMPRESSION: 1. Mild pulmonary interstitial thickening suggesting mild pulmonary edema with small marcus ateral pleural effusions. 2. Scattered nodular densities in both lungs with largest measuring 1.3 cm. Follow-up chest CT in 3-6 months recommended to ensure stability per Fleischner Society criteria. 3. Emphysematous changes. Electronically signed by: Ammon Mir MD 08/30/2020 1:08 AM ATTENDING ANESTHESIOLOGIST Due to temporary technical issues with the PACS/Fluency reporting system, reports are being signed by the in house radiologists without review as a courtesy to insure prompt reporting. The interpreting radiologist is fully responsible for the content of the report.
--- NOTE | 2020-08-30 20:01 | EKG ---
Test Date: 2020-08-29 Test Time: 21:16:59 Preschool Lead Teacher: ALEX MEASUREMENT RESULTS: Intervals: Rate: 38 DE: QRSD: 108 QT: 728 QTc: 578 Sheridan: P: 114 DE: QRS: -45 T: -61 INTERPRETIVE STATEMENTS: Atrial flutter with variable AV block with premature ventricular or aberrantly conducted complexes Left axis deviation Pulmonary disease pattern Minimal voltage criteria for LVH, may be normal variant Inferior infarct, age undetermined Prolonged QT Abnormal ECG Compared to ECG 06/18/2020 07:58:19 Ventricular premature complex(es) now present Prolonged QT interval now present Sinus rhythm no longer present Atrial premature complex(es) no longer present First degree AV block no longer present Early repolarization no longer present Myocardial infarct finding still present Electronically Signed On 08-30-20 20:01:05 TANK TERMINAL GAUGER by Kimo Mbary
[2020-09-04 00:35] VITALS: O2SAT 97
[2020-09-04 00:37] VITALS: TEMP 97.7
[2020-09-04 00:38] VITALS: BP 97/48
== END 2020-08-30 04:12 | disposition short-term general hospital (02) ==
LOC: ER 20:04
DX: R00.2 Palpitations (principal); Z20.828 Contact with and (suspected) exposure to other viral communicable diseases; I49.8 Other specified cardiac arrhythmias; R94.5 Abnormal results of liver function studies; N28.9 Disorder of kidney and ureter, unspecified; I48.91 Unspecified atrial fibrillation; Z88.8 Allergy status to other drugs, medicaments and biological substances
CPT/HCPCS: 96361; 93005; 85025; 80048; 36415; 83735; 85610; 80076; 84484; 83880; 71250; 71045; 82805; 96360; 99285; U0003; J7030

== ENCOUNTER 2024-08-07 10:01 | Day surgery (SDC) | payer OTHER ==
[2024-08-01 11:37] LABS: Absolute Basophils 0.1 K/uL (0-0.5); Absolute Eosinophils 0.2 K/uL (0-0.5); Absolute Lymphocytes (CBC) 0.9 K/uL (0.7-4.9); Absolute Monocytes 0.4 K/uL (0.1-1.3); Absolute Neutrophil 3.2 K/uL (1.8-8.0); Basophils % 2.7 % (0-1.3); Eosinophils % 4.1 % (0-4.4); Hematocrit 38.5 % (39.6-49.0); Hemoglobin 12.6 g/dL (13.6-17.9); Lymphocytes % 18.4 % (15.3-44.8); MCH 31.3 pg (27.0-35.0); MCHC 32.6 g/dL (32.0-36.0); MPV 8.5 fL (7.6-11.3); Monocytes % 9.2 % (3.3-12.3); Neutrophils % 65.6 % (41.7-73.7); Platelets 190 thou/uL (152-406); RBC Red Blood Cell Count 4.01 M/uL (4.33-5.43); Red Cell Distribution Width 14.5 % (12.1-15.2)
[2024-08-01 11:43] LABS: PT Prothrombin Time 13.2 SECONDS (9.4-12.5); PTT, Activated Partial Thromb 33.3 SECONDS (24.3-36.9); Protime INR 1.18
--- NOTE | 2024-08-01 11:52 | RAD REPORT ---
EXAM: Chest Pa And Lat (2 Views) HISTORY: pre op for day surgery COMPARISON: 06/20/2023 FINDINGS: LUNGS/PLEURA: The lungs are clear. No pleural effusions or pneumothorax. No pulmonary edema. MEDIASTINUM: The mediastinal silhouette is within normal limits. CARDIAC: The cardiac silhouette is within normal limits. UPPER ABDOMEN: No significant abnormality. BONES: No acute fracture. LINES/TUBES/OTHER: Pacemaker. IMPRESSION: No evidence of acute cardiopulmonary disease
[2024-08-01 11:54] LABS: Anion Gap 7.9 mEq/L (5.0-15.0)
[2024-08-01 12:01] LABS: Potassium 3.9 mEq/L (3.5-5.1)
[2024-08-07] MEDS: Ringers Lactate 1,000 ML IV ONE (10:45)
[2024-08-07] MEDS: HYDROCORTISONE SUC 100 MG INJ ONE (10:50)
[2024-08-07] MEDS ORDERED: ONDANSETRON 4 MG/2 ML VIAL ONE (12:29)
[2024-08-07] MEDS ORDERED: propofoL 200 MG/20 ML VIAL IV ONE (12:30)
[2024-08-07] MEDS ORDERED: FENTANYL CITR 100 MCG/2 ML ONE (12:30)
[2024-08-07] MEDS ORDERED: LIDOCAINE 2% MPF 5 ML VIAL ONE (12:30)
[2024-08-07] MEDS: CEFAZOLIN SODIUM 2 GM/VIAL ONE (15:26)
[2024-08-07] MEDS ORDERED: dexAMETHasone 10 MG/ML VIAL ONE (15:28)
[2024-08-07] MEDS: BUPIVACAINE 0.25% PF 30 ML VIAL ONE (15:53)
[2024-08-07] MEDS: DOXYCYCLINE 100 MG CAP PO ONE (16:44)
[2024-08-07] MEDS: BACITRACIN OINTMENT 14 GM TUBE TOP ONE (16:53)
[2024-08-07] MEDS ORDERED: Phenylephrine HCl 10 MG/ML 1 ML VIAL ONE (16:54)
--- NOTE | 2024-08-07 17:23 | P.OP ---
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 He would like both sides treated; but I counseled that we would not typically perform a formal hydrocelectomy bilaterally in the same setting. As a result, we agreed to treat the right side first definitively and perform an aspiration and sclerosis of the left side since there was a 50% chance it may not recur thereafter. Procedure note: The patient was consented in the preoperative holding area before being transferred to the operative suite where general anesthesia was induced. He was given Ancef 2 g IV antimicrobial prophylaxis, and pneumoboots were provided for DVT prophylaxis. He was placed supine on the procedure table, padded and secured appropriately. His genitalia were shaved, prepped with Betadine, and draped in standard fashion. A language line incision site was marked in the right hemiscrotum approximately 3 cm in diameter within the anterior surface of the scrotum. 0.5% Marcaine was instilled subcutaneously and then I incised the skin using a 15 blade deepening it through the subcutaneous tissues and the dartos layers using electrocautery. When we approached the parietal layer of the tunica vaginalis, I then dissected it circumferentially from the surrounding dartos layers beneath the layers of the scrotum several centimeters. Because the hydrocele was significantly larger than the incision that I had made, I then inserted a 18-gauge needle into the sac and decompressed it significantly s ufficient to deliver the remainder of the hydrocele outside of the incision. I then continued to sharply using electrocautery remove the remaining dartos attachments from the tunica vaginalis. This was taken circumferentially until only the hydrocele sac was remaining around the testis. I then divided the anterior aspect of the sac in a longitudinal direction ultimately opening it removing the remainder of the fluid, and then removing the majority of the sac holding it behind the cord structures posteriorly. I then performed a running and every third locking 3-0 Vicryl suture anastomosis ligating the parietal layer of the tunica vaginalis behind the cord of the right testis. Meanwhile, in the process of dissecting off the dartos layers, there was a significant lipoma of the cord extending down into the scrotum. I excised this from the tunica vaginalis and off of the cord ultimately ligating it using 3-0 Vicryl suture and dividing it at its junction with the external inguinal ring. Once the tunica vaginalis was sutured and hemostatic, I then irrigated the testis and the subcutaneous tissues fulgurating any oozing vessels seen. The testis was then left out of the scrotal sac while I distended the left recurrent hydrocele through the scrotal raphae and placed an 18-gauge needle through the raphae to decompress the left hemiscrotum. Clear yellow fluid was drained, and after this was completely decompressed, I then created a mixture of 200 mg of doxycycline hyclate powder mixed with quarter percent Marcaine, 20 cc. I then injected this mixture into the scrotal sac and distributed it around on the inside of the sac around the testis. At this point, I then delivered the right testis back into the scrotal sac, and I reapproximated the dartos layers using running 3-0 Vicryl suture. The skin and subcutaneous tissues were then ligated and reapproximated using 3-0 chromic suture dipped in bacitracin. In the end, the cosmetic result was excellent at, and I instilled more half percent Marcaine subcutaneously around the incision. The Betadine was cleansed away from his skin, and I placed bacitracin over the incision. Fluff gauze and scrotal support was applied. The patient was then awakened from general anesthesia before being transferred to a stretcher and then to the recovery room in good condition. Complications: None Discharge disposition: He may be scheduled for routine follow-up interval assessment and wound check. Subsequent definitive follow-up should be established in about 2 to 3 months.
[2024-08-07 17:39] VITALS: BP 119/65; TEMP 97.5; O2SAT 97
[2024-08-07] MEDS ORDERED: HYDROCODONE/APAP 5/325 MG TAB ONE (17:43)
[2024-08-07] MEDS: HYDROCODONE/APAP 5/325 MG TAB PO PRN (17:49)
== END 2024-08-07 18:06 | disposition home or self-care (01) ==
LOC: OR 10:01
PROVIDERS: ATTEND Urology
PROC: 0VB60ZZ Excision of Right Tunica Vaginalis, Open Approach (ICD-10-PCS; principal; 2024-08-07 14:00)
DX: N43.3 Hydrocele, unspecified (principal); D17.6 Benign lipomatous neoplasm of spermatic cord
CPT/HCPCS: 55040; 87088; 85025; 87086; 80048; 36415; 85610; 88302; 85730; 71046; J2704; J2371; J2003; J3010; J1100; J1720; J2405; J7120